=== PATIENT | female | born 1955 | race Caucasian/White ===

== ENCOUNTER 2017-02-21 07:14 | Emergency (ER) | payer OTHER ==
[2017-02-21 07:28] VITALS: BP 142/80
--- NOTE | 2017-02-21 08:13 | UC ---
Jesus Gonzalez Benjamin, scribed for Nallely Krueger DO on 02/21/17 at 0745 . Abdominal Pain Female HPI - HPI Summary HPI Summary: 62yo female c/o diffuse lower abdominal pain. Most pain is in LLQ. pt has hx of diverticulitis, and states that todays abdominal pain presents similar to her previous diverticulitis. This would be the third time. Pt has been on Cipro and flagyl for 7 days in the past. Pt reports feeling ill and nauseous from Flagyl. Pt had a fever of 101.5F, EUBANKS, and sore throat last night that is now resolved and stuffy nose and cough today since yesterday. Pt also has chronic lower back pain that is now worse than her baseline. - History of Current Complaint Chief Complaint: UCAbdominalPain Stated Complaint: ABDOMINAL PAIN Time Seen by Provider: 02/21/17 07:32 Hx Obtained From: Patient Onset/Duration: Gradual Onset, Lasting Weeks - 1 week, Still Present Timing: Constant Severity Initially: Moderate Severity Currently: Moderate Pain Intensity: 7 Pain Scale Used: 0-10 Numeric Location: Discrete At: RLQ, Discrete At: LLQ, Suprapubic Radiates: No Character: Dull, Sharp Aggravating Factor(s): Nothing Alleviating Factor(s): Nothing Associated Signs and Symptoms: Positive: Fever, Cough, Back Pain, Nausea Allergies/Adverse Reactions: Allergies Allergy/AdvReac Type Severity Reaction Status Date / Time Erythromycin Allergy GI Upset Verified 02/21/17 07:29 Metronidazole [From Flagyl] Allergy GI Upset Verified 02/21/17 07:29 Penicillins [PCN] Allergy GI Upset Verified 02/21/17 07:29 Home Medications: Home Medications Aspirin [Aspirin 81 MG TAB] 81 mg PO 02/21/17 [History] Multiple Vitamin [Multi Vitamin] 1 tab PO 02/21/17 [History] PMH/Surg Hx/FS Hx/Imm Hx Cardiovascular History: Hypertension Respiratory History: Pneumonia GI/ History: Diverticulitis - hx x2 - Surgical History Surgical History: Yes Surgery Procedure, Year, and Place: t&a - Family History Known Family History: Positive: Hypertension, Other - HLD - Social History Occupation: Employed Full-time Lives: With Family Alcohol Use: Daily Substance Use Type: None Smoking Status (MU): Never Smoked Tobacco Review of Systems Constitutional: Fever Skin: Negative Eyes: Negative ENT: Sore Throat, Nasal Discharge Respiratory: Negative Cardiovascular: Negative Gastrointestinal: Abdominal Pain, Nausea Genitourinary: Negative Motor: Negative Neurovascular: Negative Musculoskeletal: Negative Neurological: Negative Psychological: Negative All Other Systems Reviewed And Are Negative: Yes Physical Exam Triage Information Reviewed: Yes Appearance: Well-Appearing, No Pain Distress, Well-Nourished Vital Signs: Initial Vital Signs Temp 98.7 F 02/21/17 07:23 Pulse 85 02/21/17 07:23 Resp 18 02/21/17 07:23 BP 142/80 02/21/17 07:23 Pulse Ox 99 02/21/17 07:23 Vital Signs Reviewed: Yes Eyes: Positive: Conjunctiva Clear. Negative: Discharge ENT: Positive: Normal ENT inspection, Hearing grossly normal. Negative: Muffled /hoarse voice Neck: Positive: Supple, Nontender Respiratory: Positive: Lungs clear, Normal breath sounds, No respiratory distress, No accessory muscle use Cardiovascular: Positive: RRR, No Murmur Abdomen Description: Positive: Soft. Negative: Nontender - exquisite tenderness at RLQ, LLQ, and umbilical region, Distended, Guarding Bowel Sounds: Positive: Hyperactive Musculoskeletal Exam: Normal Neurological: Positive: Alert, Muscle Tone Normal Psychological Exam: Normal Psychological: Positive: Age Appropriate Behavior Skin Exam: Normal Skin: Negative: rashes Abd Pain Female Course/Dx - Course Course Of Treatment: Reviewed pts list of medications and allergies. High blood pressure noted. Suggested pt transfer to ED for higher level of care given her clinical presentation. Pt agrees to go via private car. - Differential Dx/Diagnosis Differential Diagnosis: Appendicitis, Constipation, Diverticulitis, Irritable Bowel Syndrome, Urinary Tract Infection Provider Diagnoses: abd pain of unknown magdalena - appy vs diverticulitis, elevated bp withou dx of htn Discharge - Discharge Plan Condition: Stable Disposition: HOME Patient Education Materials: Acute Abdominal Pain (ED) Referrals: Luz Ogden MD [Primary Care Provider] - (Follow up with your pcp in 3-5 days. You should follow up in the ED immediately.) Additional Instructions: YOU MAY BE HAVING A FLARE OF DIVERTICULITS, WHICH WE COULD TREAT HERE. HOWEVER , YOU ARE ALSO VERY TENDER IN THE RIGHT LOWER QUAD WHICH RAISES SUSPICION OF APPENDICITIS WHICH IS WHY WE ARE RECOMMENDING THAT YOU GO TO THE ED IMMEDIATELY FOR COMPLETE EVALUATION AND TREATMENT. WE MUST RULE OUT THIS POSSIBILITY. PLEASE DO NOT EAT OR DRINK ANYTHING PRIOR TO EVALUATION. The documentation as recorded by the Jesus drake Benjamin accurately reflects the service I personally performed and the decisions made by me, Nallely Krueger DO.
== END 2017-02-21 08:11 | disposition home or self-care (01) ==
LOC: UCEAST 07:14
DX: R10.9 Unspecified abdominal pain (principal); Z88.0 Allergy status to penicillin; I10 Essential (primary) hypertension
CPT/HCPCS: 99211; G0463

== ENCOUNTER → 2017-02-21 08:33 | Emergency (ER) | payer OTHER ==
[~2017-02-21 08:33] MED LIST: Ciprofloxacin 400MG IVPREMIX(* 400 MG/200 ML BAG IVPB ONE; Ciprofloxacin TAB* 500 MG PO ONE; Iohexol 300* (CONTRAST) 10 ML SDV IV ONE; Ketorolac INJ* 30 MG/ML 1 ML VIAL IV ONE; Ketorolac INJ* 30 MG/ML 1 ML VIAL IV PUSH ONE; Ketorolac INJ* 30 MG/ML 1 ML VIAL ONE; NS 0.9% 1000 ML* 2,000 ML IV ONE; Ondansetron INJ* 2 MG/ML VIAL IV ONE; metroNIDAZOLE IV 500 MG/100ML* 500 MG/100 ML BAG IVPB ONE
[2017-02-21 08:45] VITALS: BP 131/69
--- NOTE | 2017-02-21 09:22 | ED ---
Abdominal Pain/Female - HPI Summary HPI Summary: 62 female presents to ED with complaints of RLQ and LLQ abdominal pain, nausea and diarrhea that began yesterday 11:30am. 02/20/17. She states she has history of diverticulitis and this feels very similar. States she also had a fever yesterday of 101.5F however she does not think she has had one today. States nausea, diarrhea resolved last night. Has not eaten anything since yesterday morning. Has only been drinking water. States pain has minimized some since last night. Has not taken anything for the pain. PMHx includes HTN and chronic low back pain. Has not taken her lisinopril yet today in fear of throwing it up. Denies known blood in stool. No urinary or genitalia symptoms. Has taken cipro/flagyl in the past with flagyl making her very nauseous. Has not had an episode in a few years. Sent here from with concern for appendicitis, as patient is also tender in RLQ. However, has had previously diagnosed right sided diverticulitis as well. No abdominal surgeries or other significant PMHx. Does admit to high fiber diet. Is eating increased, nuts, grains and corn. Admits to being under some stress over the past couple of weeks. - History of Current Complaint Chief Complaint: EDAbdPain Stated Complaint: ABD PAIN Time Seen by Provider: 02/21/17 08:50 Hx Obtained From: Patient ?: No Onset/Duration: Sudden Onset, Lasting Days - 2, Still Present Timing: Constant Severity Initially: Moderate Severity Currently: Moderate Pain Intensity: 6 Pain Scale Used: 0-10 Numeric Location: Discrete At: RLQ, Discrete At: LLQ, Umbilical Radiates: No Character: Sharp, Cramping, Colicy Aggravating Factor(s): Food Alleviating Factor(s): Bowel Movement, NPO Associated Signs and Symptoms: Positive: Fever, Nausea, Diarrhea. Negative: Constipation, Blood in Stool, Urinary Symptoms, Vaginal Bleeding, Vaginal Discharge, Vomiting Allergies/Adverse Reactions: Allergies Allergy/AdvReac Type Severity Reaction Status Date / Time Erythromycin Allergy GI Upset Verified 02/21/17 08:43 Metronidazole [From Flagyl] Allergy GI Upset Verified 02/21/17 08:43 Penicillins [PCN] Allergy GI Upset Verified 02/21/17 08:43 Home Medications: Home Medications Aspirin EC Low Dose* [Ecotrin EC Low Dose 81 MG*] 81 mg PO DAILY 02/21/17 [ History Confirmed 02/21/17] Cholecalciferol TAB* [Vitamin D TAB*] 1,000 unit PO DAILY 02/21/17 [History Confirmed 02/21/17] Lisinopril TAB* [Prinivil TAB*] 10 mg PO DAILY 02/21/17 [History Confirmed 02/21] PMH/Surg Hx/FS Hx/Imm Hx Endocrine/Hematology History: Denies: Hx Diabetes Cardiovascular History: Reports: Hx Hypertension Respiratory History: Denies: Hx Asthma Musculoskeletal History: Reports: Hx Back Problems - chronic low back pain , Hx Osteoporosis - Surgical History Surgery Procedure, Year, and Place: t&a - Immunization History Immunizations Up to Date: Yes Infectious Disease History: No Infectious Disease History: Denies: Traveled Outside the [place] in Last 30 Days - Family History Known Family History: Positive: Hypertension, Other - HLD - Social History Alcohol Use: Daily Substance Use Type: Reports: None Smoking Status (MU): Never Smoked Tobacco Review of Systems Positive: Fever Cardiovascular: Negative Respiratory: Negative Positive: Abdominal Pain, Diarrhea, Nausea Genitourinary: Negative Musculoskeletal: Negative Skin: Negative Neurological: Negative All Other Systems Reviewed And Are Negative: Yes Physical Exam Triage Information Reviewed: Yes Vital Signs On Initial Exam: Initial Vitals Temp Pulse Resp BP Pulse Ox 98.3 F 81 16 131/69 100 02/21/17 08:43 02/21/17 08:43 02/21/17 08:43 02/21/17 08:43 02/21/17 08:43 Vital Signs Reviewed: Yes Appearance: Positive: Well-Appearing, No Pain Distress, Well-Nourished Skin: Positive: Warm, Skin Color Reflects Adequate Perfusion, Dry. Negative: Cold, Numb, Cyanosis @, Jaundiced, Pale, Erythema @ Head/Face: Positive: Normal Head/Face Inspection Eyes: Positive: EOMI, JOSE, Conjunctiva Clear ENT: Positive: Hearing grossly normal, Pharynx normal Dental: Negative: Cervical Lymphadenopathy Neck: Positive: Supple, Nontender Respiratory/Lung Sounds: Positive: Clear to Auscultation, Breath Sounds Present. Negative: Decreased Breath Sounds, Rales, Rhonchi, Wheezes Cardiovascular: Positive: Normal, RRR, Pulses are Symmetrical in both Upper and Lower Extremities. Negative: Murmur, Rub Abdomen Description: Positive: No Organomegaly, Soft, Guarding, Peritoneal Signs - tenderness with percussion of abdomen, Other: - diffuse tendnerness throughout lower abdomen, RLQ/LLQ and umbilical. negative psoas, negative rebound and rovsings.. Negative: Bruit, CVA Tenderness (R), CVA Tenderness (L) , Distended, McBurney's Point Tenderness, Pulsatile Mass Bowel Sounds: Positive: Present Pelvic Exam: Positive: external exam normal - per patient Musculoskeletal: Positive: Normal, Strength/ROM Intact Neurological: Positive: Normal, Sensory/Motor Intact, Alert, Oriented to Person Place, Time, NV Bundle Intact Distally, Normal Gait Psychiatric: Positive: Affect/Mood Appropriate Diagnostics - Vital Signs Vital Signs Temp Pulse Resp BP Pulse Ox 02/21/17 08:43 98.3 F 81 16 131/69 100 - Laboratory Result Diagrams: 02/21/17 09:10 02/21/17 09:10 Lab Statement: Any lab studies that have been ordered have been reviewed, and results considered in the medical decision making process. - CT abd/pelvis CT Interpretation: Positive (See Comments) - DIFFUSE COLONIC DIVERTICULOSIS WITH SIGMOID DIVERTICULITIS. THERE IS SMALL AMOUNT OF GAS ADJACENT TO THE SIGMOID COLON THAT IS NOT DEFINITELY INTRALUMINAL CONCERNING FOR MICROPERFORATION. PRELIMINARY FINDINGS WERE DISCUSSED WITH [facility] AND THE EMERGENCY DEPARTMENT AT APPROXIMATELY 12:30 PM ON FEBRUARY 21, 2017. CT Interpretation Completed By: Radiologist Re-Evaluation - Re-Evaluation First Eval Re-Evaluation Time: 10:45 Change: Unchanged Second Eval Re-Evaluation Time: 12:40 Change: Unchanged - updated on imaging and lab results. spoke with surgery and hospitalist will be consulted for admission for IV antibiotics and observation. however after consultation and discussion patient will be treated outpatient- patient preference. Abdominal Pain Fem Course/Dx - Course Course Of Treatment: offered pain management and antiemetic however patient deferred at this time. given fluids. labs obtained and normal other than elevated CRP. without WBC elevationa and afebrile. CT abd/pelvis to rule out appey versus diverticulitis due to HPI, PE findings and labs. CT showed diverticulitis with possible microperforation. Spoke with Lawrence at 12:42pm who stated non surgical however observe and IV antbiotics, will consult on floor if admitted. Spoke with Dr Buck hospitalist at 12:50pm who consulted and stated outpatient treatment seems appropriate and will be sufficient. possible microperforation not of concern at this time per Dr Bravo and Dr Buck Given zofran with cipro/flagyl IV first dose in ED. Continue at home. Patient agrees and understands. All questions answered. Aware of worsening signs and symptoms to watch out for. Fluids, rest, high fiber diet. Told foods to avoid. Close follow up PCP. Return if new or worsening symptoms. - Diagnoses Differential Diagnosis: Positive: Appendicitis, Constipation, Diverticulitis, Urinary Tract Infection Provider Diagnoses: Diverticulitis large intestine - Provider Notifications Discussed Care Of Patient With: Dr Bravo, Dr Buck Time Discussed With Above Provider: 12:45 Instructed by Provider To: Other - outpatient treatment, non surgical Discharge - Discharge Plan Condition: Stable Disposition: HOME Prescriptions: Ciprofloxacin TAB* [Cipro 500 MG TAB*] 500 mg PO BID #19 tab Metronidazole [Flagyl 500 MG TAB] 500 mg PO TID #29 tab Ondansetron ODT TAB* [Zofran 4 MG Odt TAB*] 4 mg PO Q6H PRN #20 tab.odt PRN Reason: Nausea Patient Education Materials: Diverticulitis (ED), Diverticulitis Diet (ED) Referrals: Luz Ogden MD [Primary Care Provider] - Additional Instructions: Take prescribed medication as directed. Recommend taking with food. Nausea medication as needed to avoid nausea from flagyl. Take before taking flagyl. Drinking plenty of fluids and high fiber diet. Probiotic pills or uzbek yogurt daily. Ibuprofen/tylenol for pain. Close follow up with PCP in 2-3 days. If symptoms worsen or do not improve as discussed please seek medical attention immediately.
[2017-02-21 09:28] LABS: Hematocrit 39 % (35-47); Hemoglobin 12.9 g/dl (12.0-16.0); Mean Corpuscular HGB Conc 33 g/dl (31-36); Mean Corpuscular Hemoglobin 29 pg (27-31); Mean Corpuscular Volume 87 fL (80-97); Mean Platelet Volume 8 um3 (7.4-10.4); Red Blood Count 4.45 10^6/ul (4.0-5.4); Red Cell Distribution Width 14 % (10.5-15); White Blood Count 10.7 10^3/ul (3.5-10.8)
[2017-02-21 09:45] LABS: BUN/Creatinine Ratio 17.8 (8-20); C Reactive Protein 110.68 mg/L (< 5.00); EGFR African American 104.2 (>60); Globulin 3.1 g/dL (2-4); Magnesium 1.9 mg/dL (1.9-2.7); Potassium 3.6 mmol/L (3.5-5.0); Total Bilirubin 0.8 mg/dL (0.2-1.0); Total Protein 7.1 g/dL (6.4-8.9)
[2017-02-21 11:02] LABS: Urine Bacteria Absent (Absent); Urine Bilirubin Negative (Negative); Urine Glucose Negative (Negative); Urine Nitrite Negative (Negative)
--- NOTE | 2017-02-21 12:34 | RAD ---
CLINICAL HISTORY: Right lower quadrant pain, left lower quadrant pain COMPARISON: None TECHNIQUE: Multiple contiguous axial CT scans were obtained of the abdomen and pelvis after the administration of intravenous contrast. Coronal and sagittal multiplanar reformations are submitted for review. Oral contrast was administered. Delayed images were obtained through the abdomen and pelvis. FINDINGS: LUNG BASES: The lung bases are clear. LIVER: There is a simple cyst of the right lobe of liver measuring 1.3 cm. BILE DUCTS: There is no intrahepatic or extrahepatic biliary dilatation. GALLBLADDER: The gallbladder is normal, without pericholecystic inflammatory change. PANCREAS: The pancreas is normal, without mass or ductal dilatation. SPLEEN: Normal in size and appearance. UPPER GI TRACT: Evaluation of the gastrointestinal tract is limited by incomplete gastric distention. The upper GI tract is unremarkable. SMALL BOWEL AND MESENTERY: The small bowel is normal in contour, course, and caliber. There is no obstruction or dilatation. COLON: There are diverticula scattered throughout the colon with more extensive diverticulosis of the descending and sigmoid colon. There is mucosal thickening of the sigmoid colon with mild stranding of the pericolic fat. There is a small amount of gas that is not definitely intraluminal located along the antimesenteric margin of the sigmoid colon. ADRENALS: Normal bilaterally. KIDNEYS: The kidneys are normal in shape, size, contour, and axis. There is no hydronephrosis or nephrolithiasis. BLADDER: The bladder is smooth in contour. PELVIC ORGANS: The uterus and adnexa are grossly normal for technique. This is best seen on axial image 73 and coronal image 44 AORTA: The aorta is normal. IVC: Unremarkable LYMPH NODES: There is no lymphadenopathy by size criteria. ABDOMINAL WALL: There is no evidence for abdominal wall hernia. BONES AND SOFT TISSUES: Degenerative changes are noted along the spine OTHER: None IMPRESSION: DIFFUSE COLONIC DIVERTICULOSIS WITH SIGMOID DIVERTICULITIS. THERE IS SMALL AMOUNT OF GAS ADJACENT TO THE SIGMOID COLON THAT IS NOT DEFINITELY INTRALUMINAL CONCERNING FOR MICROPERFORATION. PRELIMINARY FINDINGS WERE DISCUSSED WITH [facility] AND THE EMERGENCY DEPARTMENT AT APPROXIMATELY 12:30 PM ON FEBRUARY 21, 2017.
--- NOTE | 2017-02-21 23:02 | CONS ---
CONSULTATION REPORT: DATE OF CONSULT: 02/21/17 CONSULTING PROVIDER: Derian Buck MD CHIEF COMPLAINT: Right lower quadrant and left lower quadrant abdominal pain, nausea and diarrhea. HISTORY OF PRESENT ILLNESS: The patient is a 62-year-old female, presenting with past medical histo ry of hypertension, diverticulitis and chronic low back pain. For the last 2 days, she has had incre asing right lower quadrant and left lower quadrant abdominal pain, nausea, vomiting. At home, she r egistered a fever of 101.5, although this resolved this morning. The patient presented to the emerg ency room and was found to have evidence of diverticulitis on the CT abdomen and pelvis with IV cont rast. Impression was diffuse colonic diverticulosis with sigmoid diverticulitis. There was noted s mall amount of gas adjacent to the sigmoid colon that was unable to be determined to be completely i ntraluminal and therefore could not rule out a microperforation. The patient had no leukocytosis wi th a white count of 10.7. BMP was benign. CRP was 110 and elevated. Urinalysis was significant fo r 1+ ketones, 3+ leukocyte esterase, 1+ wbc's and presence of squamous epithelial cells. Lactic aci d was normal on 2 readings. The patient received IV Cipro and Flagyl in the emergency room. Surger y was consulted, which was not impressed with the imaging findings in regard to potential microperfo ration. Medicine was consulted and given improvement in symptoms. So, I wanted trial of outpatient management with p.o. antibiotics Cipro and Flagyl in addition to p.r.n. Zofran. The patient was ad vised to return to the emergency room with uncontrolled abdominal pain, return of fevers, lightheade dness, dizziness, uncontrolled nausea, vomiting or profuse diarrhea or inability to maintain p.o. in take. PAST MEDICAL HISTORY: Hypertension and chronic low back pain. HOME MEDICATIONS: 1. Aspirin 81 mg. 2. Cholecalciferol 1000 units p.o. daily. 3. Lisinopril 10 mg daily. ALLERGIES: The patient has adverse reactions of GI upset with PENICILLINS and FLAGYL. The FLAGYL s pecifically causes nausea. REVIEW OF SYSTEMS: The patient denies 14-point review of systems other than stated in the HPI. PHYSICAL EXAM: Patient in no acute distress, sitting on the bed gurney. HEENT: Normocephalic, atra umatic. No scleral icterus. Extraocular motions intact. Pupils equally round and reactive to light . No cervical lymphadenopathy. Respiratory: Clear to auscultation bilaterally with no wheezing, ra les, or rhonchi. Cardiovascular: Regular rate and rhythm. No murmurs, rubs, or gallops. Abdomen: Modest tenderness to palpation in the left lower and right lower quadrants. No rebound. No guardi ng. No peritoneal signs. No Gonzalez's sign. Extremities: Warm and well perfused. No peripheral ed romel. Vitals included temperature 98.3, pulse rate 81, respiratory rate 16, blood pressure 131/69. DIAGNOSTIC STUDIES/LABORATORY DATA: White count 10.7, hemoglobin 12.9, hematocrit 39, platelets 261 , neutrophil percentage 78.1%. Sodium 133, potassium 3.6, chloride 100, carbon dioxide 25, BUN 13, creatinine 0.73, lactic acid 0.8. LFTs within normal limits. CRP 110. Lipase 11. UA is in the HP I. CT abdomen and pelvis as per HPI. ASSESSMENT AND PLAN: The patient is a 62-year-old female with a past medical history of hypertensio n, diverticulitis, presenting with evidence of same. The patient is benign appearing with no leukoc ytosis, resolved fevers and nausea that has now controlled with Zofran. She will be trialed on p.o. antibiotics Cipro and Flagyl and we will give him prescription for Zofran to take before the Flagyl doses given her history of nausea resulting from them. The patient was advised to follow up closel y with emergency room or primary care provider if the patient develops fevers, abdominal pain, diarr hea, uncontrolled nausea or vomiting with just p.o. intake. The patient was evaluated by General Sarabia rgjaskaran and has very low suspicion for perforation of this diverticulitis given exam findings and over all clinical assessment. [id number]/[facility] #: [id number]
== END | disposition home or self-care (01) ==
LOC: ED 08:33
DX: K57.32 Diverticulitis of large intestine without perforation or abscess without bleeding (principal); R10.31 Right lower quadrant pain; R50.9 Fever, unspecified; R19.7 Diarrhea, unspecified; R11.10 Vomiting, unspecified; Z86.79 Personal history of other diseases of the circulatory system
CPT/HCPCS: 36415; 74177; 80053; 81003; 81015; 83605; 83690; 83735; 85025; 86140; 87086; 96374; 96375; 99282; A9270-GY; J0744; J1885; J2405; Q9967

== ENCOUNTER 2017-02-26 12:51 | Inpatient (IN) | payer OTHER ==
[2017-02-26 18:16] LABS: Hematocrit 39 % (35-47); Hemoglobin 12.7 g/dl (12.0-16.0); Mean Corpuscular HGB Conc 33 g/dl (31-36); Mean Corpuscular Hemoglobin 28 pg (27-31); Mean Corpuscular Volume 86 fL (80-97); Mean Platelet Volume 7 um3 (7.4-10.4); Red Blood Count 4.48 10^6/ul (4.0-5.4); Red Cell Distribution Width 14 % (10.5-15); White Blood Count 12.9 10^3/ul (3.5-10.8)
[2017-02-26 18:31] LABS: Albumin 3.8 g/dL (3.2-5.2); BUN/Creatinine Ratio 16.9 (8-20); C Reactive Protein 79.62 mg/L (< 5.00); Calcium 9.1 mg/dL (8.6-10.3); EGFR African American 107.6 (>60); EGFR Non-African American 83.7 (>60); Globulin 3.5 g/dL (2-4); Potassium 3.4 mmol/L (3.5-5.0); Total Bilirubin 0.4 mg/dL (0.2-1.0); Total Protein 7.3 g/dL (6.4-8.9)
[2017-02-26] MEDS ORDERED: Ciprofloxacin 400MG IVPREMIX(* 400 MG/200 ML BAG IVPB ONE (18:34)
[2017-02-26] MEDS ORDERED: Iohexol 300* (CONTRAST) 10 ML SDV IV ONE (18:48)
--- NOTE | 2017-02-26 19:18 | RAD ---
CLINICAL HISTORY: Diverticulitis COMPARISON: February 21, 2017 TECHNIQUE: Multiple contiguous axial CT scans were obtained of the abdomen and pelvis after the administration of intravenous contrast. Coronal and sagittal multiplanar reformations are submitted for review. Oral contrast was administered. Delayed images were obtained through the abdomen and pelvis. FINDINGS: LUNG BASES: The lung bases are clear. LIVER: There is a stable simple cyst of the right lobe of liver. BILE DUCTS: There is no intrahepatic or extrahepatic biliary dilatation. GALLBLADDER: The gallbladder is normal, without pericholecystic inflammatory change. PANCREAS: The pancreas is normal, without mass or ductal dilatation. SPLEEN: Normal in size and appearance. UPPER GI TRACT: Evaluation of the gastrointestinal tract is limited by incomplete gastric distention. The upper GI tract is unremarkable. SMALL BOWEL AND MESENTERY: The small bowel is normal in contour, course, and caliber. There is no obstruction or dilatation. COLON: Again noted is diffuse in the sigmoid colon with pericolic mesentery change. There is a multiloculated gas and fluid collection that surrounds the uterus and left adnexa and extends into the rectouterine pouch. ADRENALS: Normal bilaterally. KIDNEYS: The kidneys are normal in shape, size, contour, and axis. There is no hydronephrosis or nephrolithiasis. BLADDER: The bladder is smooth in contour. PELVIC ORGANS: As noted above, there is loculated gas and fluid collection surrounding the uterus and left adnexa extending to the rectouterine pouch AORTA: The aorta is normal. IVC: Unremarkable LYMPH NODES: There is no lymphadenopathy by size criteria. ABDOMINAL WALL: There is no evidence for abdominal wall hernia. BONES AND SOFT TISSUES: Degenerative changes are noted OTHER: None IMPRESSION: AGAIN NOTED IS DIVERTICULITIS OF THE SIGMOID COLON. THERE HAS BEEN INTERVAL DEVELOPMENT OF A MULTILOCULATED GAS AND FLUID COLLECTION CONSISTENT WITH ABSCESS. THIS SURROUNDS THE UTERUS AND LEFT ADNEXA, AND EXTENDS INTO THE RECTOUTERINE POUCH. THERE IS GAS WITHIN THIS COLLECTION CONSISTENT WITH MEDICATION WITH THE LUMEN OF THE BOWEL. PRELIMINARY FINDINGS WERE DISCUSSED WITH DR. NAYAK IN THE EMERGENCY DEPARTMENT AT APPROXIMATELY 7:12 PM ON FEBRUARY 26, 2017.
[2017-02-26 19:38] LABS: Urine Bacteria Absent (Absent); Urine Bilirubin Negative (Negative); Urine Glucose Negative (Negative); Urine Nitrite Negative (Negative)
[2017-02-26] MEDS ORDERED: Meropenem 1 GM PREMIX(*) 1 GM/50 ML BAG IV SCH (20:00)
[2017-02-27] MEDS: NS 0.9% 1000 ML* 1,000 ML IV SCH (00:08)
[2017-02-27] MEDS: Meropenem 1 GM PREMIX(*) 1 GM/50 ML BAG IV SCH ×3 (00:08→15:10)
[2017-02-27] MEDS ORDERED: Morphine INJ* 4 MG/ML 1 ML CARPUJECT IV PRN (00:26)
[2017-02-27] MEDS ORDERED: Ondansetron INJ* 2 MG/ML VIAL IV PRN (00:27)
--- NOTE | 2017-02-27 03:54 | ED ---
Len Gonzalez Rebecca, scribed for Devendra Saeed on 02/27/17 at 0252 . Progress - Progress Note Progress Note: Pt was signed out from Dr. Duff, pending disposition, awaiting CT Abd/Pel. - Results/Orders Results/Orders: CT Abd/Pel, as read by radiologist, reveals: AGAIN NOTED IS DIVERTICULITIS OF THE SIGMOID COLON. THERE HAS BEEN INTERVAL DEVELOPMENT OF A MULTILOCULATED GAS AND FLUID COLLECTION CONSISTENT WITH ABSCESS. THIS SURROUNDS THE UTERUS AND LEFT ADNEXA, AND EXTENDS INTO THE RECTOUTERINE POUCH. THERE IS GAS WITHIN THIS COLLECTION CONSISTENT WITH MEDICATION WITH THE LUMEN OF THE BOWEL. PRELIMINARY FINDINGS WERE DISCUSSED WITH DR. DUFF IN THE EMERGENCY DEPARTMENT AT APPROXIMATELY 7:12 PM ON FEBRUARY 26, 2017. ED physician reviewed radiology report and agrees. Course/Dx - Course Course Of Treatment: Pt was signed out from Dr. Duff, pending disposition, awaiting CT Abd/Pel. CT Abd/Pel reveals diverticulitis with the full impression above. Discussed care of pt with Dr. Judson Amador at 1930 who accepts pt for admission. Pts condition is stable and she will be admitted with Dx of diverticular abscess. She understands and agrees. Allergies noted. Elevated BP noted. Pt medications reviewed. - Diagnoses Provider Diagnoses: Diverticular abscess - Provider Notifications Discussed Care Of Patient With: Judson Amador Time Discussed With Above Provider: 19:30 Instructed by Provider To: Other - Accepts pt for admission. The documentation as recorded by the Len drake Rebecca accurately reflects the service I personally performed and the decisions made by , Devendra Saeed.
--- NOTE | 2017-02-27 04:41 | HP ---
CC: Dr. Ogden * HOSPITAL MEDICINE HISTORY AND PHYSICAL: DATE OF ADMISSION: 02/26/17 PRIMARY CARE PHYSICIAN: Dr. Ogden. ATTENDING PHYSICIAN: Judson Amador MD * (dictated provided by Teresa Wang NP). CHIEF COMPLAINT: Lower abdominal pain. HISTORY OF PRESENT ILLNESS: Ms. Doan is a 62-year-old female with a past medical history of hypertension, diverticulitis. She was first at our hospital on 02/21/17 with concern for abdominal pain and diarrhea. At that point, she had a CT of the abdomen, which showed diffuse colonic diverticulosis with diverticulitis. It also showed a small amount of gas adjacent to the sigmoid colon concerning for microperforation. Case was reviewed with surgery and it was felt that she was appropriate for discharge to home for antibiotic therapy. The patient took Cipro, Flagyl, and Zofran p.r.n. She was doing well intitially. She followed up with her primary care physician, Dr. Ogden on 10/06, at which time it was felt that she was recovering nicely. She has been having difficulty tolerating oral intake and has thus far only been able to have water. She attributes this more to Flagyl as that has been her experience in the past with this medication. However, today at 11 a.m., she had the sudden onset of "screaming pain" to her abdomen, described as diffuse in natures. In the emergency room, Ms. Doan had no fever. She had a very mild leukocytosis with a white blood cell count of 12.9, which is unchanged from previous. She had good improvement, resolution of her pain without any pain medications. She had a CT abdomen and pelvis, however, that showed she had in the interim since the last pelvic CT on 02/21/17, developed a large abscess, read as follows: "Interval development of a multiloculated gas or fluid collection consistent with abscess that surrounds the uterus and the left adnexa and extends into the rectouterine pouch. There is gas within the collection, consistent with communication with the lumen of the bowel." PAST MEDICAL HISTORY: 1. Hypertension. 2. Diverticulitis. 3. Chronic back pain since April 2016. MEDICATIONS: 1. Lisinopril 10 mg p.o. daily. 2. Metronidazole 500 mg p.o. b.i.d. 3. Ondansetron 4 mg p.o. q.6 h. p.r.n. 4. Ciprofloxacin 500 mg p.o. b.i.d. 5. Cholecalciferol 1000 units p.o. daily. 6. Aspirin 81 mg p.o. daily. ALLERGIES: ERYTHROMYCIN, METRONIDAZOLE, and PENICILLIN. FAMILY HISTORY: The patient reports her mom was an alcoholic and she also had uterine cancer. She in her 80s related to complications of alcoholism. Father in his 70s. He had dementia and prostate cancer. SOCIAL HISTORY: The patient denies tobacco or drug use. She drinks wine with dinner. She lives alone. She states her friend, Kathleen Jacome, would be her healthcare proxy. Phone number [phone]. REVIEW OF SYSTEMS: A 14-point review of systems was completed with Ms. Doan and all those not mentioned above were negative. I will note the patient said that she did not have a fever during the course of this illness at home. PHYSICAL EXAMINATION GENERAL: Ms. Doan is sitting up in the bed. She is in no acute distress. VITAL SIGNS: Temperature 99.1, pulse rate 86, respiratory rate 18, O2 saturation 98% on room air, blood pressure 120/68. LUNGS: Clear to auscultation bilaterally with no accessory muscle use and good aeration. HEART: S1 and S2. No murmur, rub, or gallop, and regular. ABDOMEN: Soft. There is tenderness along the lower abdomen, but there is no rebound. There is no guarding. Bowel sounds are positive. EXTREMITIES: No cyanosis or edema. NEURO: She is alert, she is oriented x3. She moves all extremities equally. There is no facial asymmetry or focal weakness. Extraocular movements are intact. SKIN: Intact. DIAGNOSTIC STUDIES/LAB DATA: WBC 12.9, hemoglobin 12.7, hematocrit 39, and platelet count 373,000. Sodium 133, potassium 3.4, chloride 94, serum bicarbonate 28, BUN 12, creatinine 0.71, glucose 87. CRP 79.62. Urine shows no evidence of infection. CT abdomen and pelvis as addressed above. ASSESSMENT AND PLAN: Ms. Doan is a 62-year-old female with a past medical history of diverticulitis, first presented to our hospital on 02/21/17 with evidence of diverticulitis on CT abdomen and pelvis that was treated outpatient with antibiotics. The patient returns today with severe pain, found to have an interval development of a loculated abscess. Our plans are for inpatient admission, as expected length of stay to be greater than 2 days with followin. Diverticulitis with perforation and abscess: Surgery has been consulted and they will be seeing the patient. The patient will have meropenem for IV antibiotic coverage given failure of Cipro and Flagyl. She will have clear liquids as tolerated. She will have morphine p.r.n. She will have Zofran p.r.n. 2. Hypertension: Plan to hold lisinopril during the acute illness. 3. Code status is full code. 4. DVT prophylaxis: Heparin subcu. TIME SPENT: Approximately 60 minutes was spent on the admission of this patient. More than half the time spent with the patient at the bedside reviewing the events leading up to this hospitalization, performing the physical examination, and reviewing the plan of care. TERESA WANG NP [id number]/[facility] #: [id number] [place]
[2017-02-27] MEDS: Acetaminophen TAB* 325 MG PO PRN ×4 (05:21→23:55)
[2017-02-27] MEDS: Heparin VIAL(*) 5000 UNITS/ML VIAL (FIVE THOUSAND) SUBCUT SCH ×3 (05:22→21:50)
[2017-02-27 07:08] LABS: Hematocrit 36 % (35-47); Mean Corpuscular HGB Conc 34 g/dl (31-36); Mean Corpuscular Hemoglobin 29 pg (27-31); Mean Corpuscular Volume 86 fL (80-97); Mean Platelet Volume 7 um3 (7.4-10.4); Red Blood Count 4.14 10^6/ul (4.0-5.4); Red Cell Distribution Width 14 % (10.5-15); White Blood Count 10.3 10^3/ul (3.5-10.8)
[2017-02-27 07:22] LABS: BUN/Creatinine Ratio 16.7 (8-20); Calcium 8.2 mg/dL (8.6-10.3); EGFR African American 130.7 (>60); EGFR Non-African American 101.6 (>60); Potassium 3.6 mmol/L (3.5-5.0)
--- NOTE | 2017-02-27 14:15 | PN ---
Subjective Date of Service: 02/27/17 Interval History: Patient has no complaints at time of interview. Patient states that her abdominal pain from last night has resolved. Patient states she has been having loose stools and frequent flatus with occasional incontinence of small amounts of stool. Patient denies f/c, n/v, chest pain, SOB, dysuria, hematuria, melena, hematochezia or hematemesis. Family History: Unchanged from Admission Social History: Unchanged from Admission Past Medical History: Unchanged from Admission Objective Active Medications: Acetaminophen (Tylenol Tab*) 650 mg PO Q6H PRN PRN Reason: PAIN/FEVER Last Admin: 02/27/17 11:25 Dose: 650 mg Heparin Sodium (Porcine) (Heparin Vial(*)) 5,000 units SUBCUT Q8HR [facility] Last Admin: 02/27/17 05:22 Dose: 5,000 units Meropenem (Merrem 1 Gm Premix(*)) 1 gm in 50 mls @ 100 mls/hr IV 0000,0800, 1600 [facility] Last Admin: 02/27/17 07:33 Dose: 100 mls/hr Sodium Chloride (Ns 0.9% 1000 Ml*) 1,000 mls @ 100 mls/hr IV PER RATE [facility] Last Admin: 02/27/17 00:08 Dose: 100 mls/hr Morphine Sulfate (Morphine Inj (Syringe)*) 4 mg IV Q2H PRN PRN Reason: PAIN Ondansetron HCl (Zofran Inj*) 4 mg IV Q4H PRN PRN Reason: NAUSEA Vital Signs 02/26/17 02/26/17 02/26/17 20:00 20:40 21:00 Temperature Pulse Rate 77 94 78 Respiratory Rate Blood Pressure 133/64 144/132 137/74 (mmHg) O2 Sat by Pulse 95 95 95 Oximetry 02/26/17 02/26/17 02/26/17 21:10 21:30 22:00 Temperature Pulse Rate 82 81 83 Respiratory Rate Blood Pressure 102/70 135/76 134/71 (mmHg) O2 Sat by Pulse 96 96 96 Oximetry 02/26/17 02/26/17 02/26/17 22:30 23:14 23:26 Temperature 99.1 F 99.0 F Pulse Rate 77 79 Respiratory 14 Rate Blood Pressure 134/72 137/77 (mmHg) O2 Sat by Pulse 96 97 Oximetry 02/27/17 02/27/17 02/27/17 03:34 08:00 08:03 Temperature 98.8 F 98.9 F Pulse Rate 83 79 Respiratory 16 16 16 Rate Blood Pressure 118/67 132/71 (mmHg) O2 Sat by Pulse 98 96 Oximetry Oxygen Devices in Use Now: None Appearance: Patient is a 62yo female who appears stated age and is sitting in the exam bed in NAD. Eyes: No Scleral Icterus, PERRLA Ears/Nose/Mouth/Throat: NL Teeth, Lips, Gums, Clear Oropharnyx, Mucous Membranes Moist Neck: NL Appearance and Movements; NL JVP, Trachea Midline Respiratory: Symmetrical Chest Expansion and Respiratory Effort, Clear to Auscultation Cardiovascular: NL Sounds; No Murmurs; No JVD, RRR, No Edema Abdominal: No Hepatosplenomegaly, - - Slight tenderness to deep palpation in suprapubic area. No other tenderness or mass. BS present and normoactive in 4 quadrants. Lymphatic: No Cervical Adenopathy Extremities: No Edema, No Clubbing, Cyanosis Skin: No Rash or Ulcers, No Nodules or Sclerosis Neurological: Alert and Oriented x 3 Result Diagrams: 02/27/17 06:38 02/27/17 06:38 Additional Lab and Data: 02/26/17 02/26/17 02/26/17 18:05 18:05 18:05 WBC 12.9 H RBC 4.48 Hgb 12.7 Hct 39 MCV 86 MCH 28 MCHC 33 RDW 14 Plt Count 373 MPV 7 L Neut % (Auto) 71.8 Lymph % (Auto) 16.9 L [place] % (Auto) 10.4 H Eos % (Auto) 0.5 Baso % (Auto) 0.4 Absolute Neuts (auto) 9.3 H Absolute Lymphs (auto) 2.2 Absolute Monos (auto) 1.3 H Absolute Eos (auto) 0.1 Absolute Basos (auto) 0.1 Absolute Nucleated RBC 0 Nucleated RBC % 0 Sodium 133 Potassium 3.4 L Chloride 94 L Carbon Dioxide 28 Anion Gap 11 BUN 12 Creatinine 0.71 Est GFR ( Amer) 107.6 Est GFR (Non-Af Amer) 83.7 BUN/Creatinine Ratio 16.9 Glucose 87 Lactic Acid 0.8 Calcium 9.1 Total Bilirubin 0.40 AST 18 ALT 12 Alkaline Phosphatase 66 C-Reactive Protein 79.62 H Total Protein 7.3 Albumin 3.8 Globulin 3.5 Albumin/Globulin Ratio 1.1 Lipase 20 Urine Color Urine Appearance Urine pH Ur Specific [place] Urine Protein Urine Ketones Urine Blood Urine Nitrate Urine Bilirubin Urine Urobilinogen Ur Leukocyte Esterase Urine WBC (Auto) Urine RBC (Auto) Ur Squamous Epith Cells Urine Bacteria Urine Glucose 02/26/17 02/27/17 02/27/17 19:21 06:38 06:38 WBC 10.3 RBC 4.14 Hgb 12.0 Hct 36 MCV 86 MCH 29 MCHC 34 RDW 14 Plt Count 335 MPV 7 L Neut % (Auto) 71.5 Lymph % (Auto) 15.8 L [place] % (Auto) 11.5 H Eos % (Auto) 0.8 Baso % (Auto) 0.4 Absolute Neuts (auto) 7.3 Absolute Lymphs (auto) 1.6 Absolute Monos (auto) 1.2 H Absolute Eos (auto) 0.1 Absolute Basos (auto) 0 Absolute Nucleated RBC 0 Nucleated RBC % 0 Sodium 135 Potassium 3.6 Chloride 100 L Carbon Dioxide 25 Anion Gap 10 BUN 10 Creatinine 0.60 Est GFR ( Amer) 130.7 Est GFR (Non-Af Amer) 101.6 BUN/Creatinine Ratio 16.7 Glucose 86 Lactic Acid Calcium 8.2 L Total Bilirubin AST ALT Alkaline Phosphatase C-Reactive Protein Total Protein Albumin Globulin Albumin/Globulin Ratio Lipase Urine Color Straw Urine Appearance Clear Urine pH 6.0 Ur Specific [place] 1.050 H Urine Protein Negative Urine Ketones 1+ H Urine Blood Negative Urine Nitrate Negative Urine Bilirubin Negative Urine Urobilinogen Negative Ur Leukocyte Esterase Trace H Urine WBC (Auto) Trace(0-5/hpf) Urine RBC (Auto) Trace(0-2/hpf) Ur Squamous Epith Cells Present H Urine Bacteria Absent Urine Glucose Negative Assess/Plan/Problems-Billing Assessment: - Patient Problems (1) Intraperitoneal abscess Current Visit: Yes Status: Acute Code(s): K65.1 - PERITONEAL ABSCESS SNOMED Code(s): 46842492 Comment: Appreciate Input from Surgery. Continue IV antibiotics for 2-3 days at minimum. Monitor for signs of systemic toxicity. Supportive care as needed. No current abdominal pain. Appreciate ID consult. Suggested switch to Zosyn from Meropenum and will see in morning. (2) Hypertension Current Visit: Yes Status: Acute Code(s): I10 - ESSENTIAL (PRIMARY) HYPERTENSION SNOMED Code(s): 09758147 Comment: Hold Lisinopril. Currently normotensive. (3) Full code status Current Visit: Yes Status: Acute Code(s): Z78.9 - OTHER SPECIFIED HEALTH STATUS SNOMED Code(s): 169321276 (4) DVT prophylaxis Current Visit: Yes Status: Acute Code(s): QUW8998 - SNOMED Code(s): 770630718 Comment: SubQ Heparin Status and Disposition: Patient is admitted inpatient for IV antibiotics. Estimated LOS at least 2-3 days.
[2017-02-27] MEDS: Lactobacillus Acidophilu (GG)* 1 CAP CAP PO SCH (15:10)
[2017-02-27] MEDS ORDERED: Zosyn per Pharmacy* NOTE FOLLOW UP PRN (17:27)
--- NOTE | 2017-02-27 21:38 | CONS ---
CC: Dr. Luz Ogden * SURGICAL CONSULTATION REPORT: DATE OF CONSULT: 02/27/17 HISTORY OF PRESENT ILLNESS: The patient is a 62-year-old female, who comes in with signs and symptoms consistent with diverticulitis. She was here about 5 days ago, seen in the emergency room and discharged on oral antibiotics, but yesterday had very intense bout of pain in the suprapubic and left lower quadrant region and therefore presented to the emergency room. She is actually feeling quite a bit better this morning. By history, she had a lesser attack a couple of years ago and then her first attack of diverticulitis, she thinks was 6 or 8 years ago. She did not have any perforation or abscess at that time. PAST MEDICAL HISTORY: Her past medical history is benign in terms of colon. She has not had other colonic diseases or bowel issues and no previous intestinal surgery. The pain has not been radiating into the groin or down the leg or elsewhere. She did note that she has had some chronic back pain since April and that pain all of a sudden got better when this diverticulitis started. PHYSICAL EXAM: She is a well-developed, well-nourished female appears fit and energetic. She is afebrile. Vital signs are noted. Abdomen is soft, mild tenderness in the left suprapubic region. No guarding. No rebound. No cough or percussion tenderness. No palpable masses. DIAGNOSTIC STUDIES/LAB DATA: Her laboratory studies show a white blood count slightly elevated on admission, now down to normal. She does have a little bit of a left shift and her CT scan does show what looks like extraluminal air and fluid in the region of the sigmoid colon behind the bladder. This is consistent with a perforated diverticulitis with a focal abscess. IMPRESSION: Diverticulitis, originally treated with oral antibiotics now complicated by a focal perforation with probably evolving abscess. PLAN: I agree with the plan for continued intravenous antibiotics. We will monitor her along with you. So long as she responds to the intravenous antibiotics, then she could probably be discharged in a couple of days on oral antibiotics. If, however, she fails to respond or relapses, then CT-guided percutaneous drainage may be warranted or even possibly surgical intervention. We will continue to follow along with you. Thanks for allowing us to participate in her care. [id number]/[facility] #: [id number] [place]
[2017-02-28] MEDS ORDERED: ZOSYN 3.375 GM x ONE DOSE over 30 miuntes IVPB ×2
[2017-02-28] MEDS: NS 0.9% 1000 ML* 1,000 ML IV SCH ×2 (02:39→15:13)
[2017-02-28] MEDS: Heparin VIAL(*) 5000 UNITS/ML VIAL (FIVE THOUSAND) SUBCUT SCH ×3 (05:08→22:40)
[2017-02-28 05:55] LABS: Hematocrit 35 % (35-47); Hemoglobin 11.5 g/dl (12.0-16.0); Mean Corpuscular HGB Conc 33 g/dl (31-36); Mean Corpuscular Hemoglobin 29 pg (27-31); Mean Corpuscular Volume 87 fL (80-97); Mean Platelet Volume 8 um3 (7.4-10.4); Red Cell Distribution Width 14 % (10.5-15); White Blood Count 8.9 10^3/ul (3.5-10.8)
[2017-02-28 06:13] LABS: BUN/Creatinine Ratio 10.9 (8-20); C Reactive Protein 37.06 mg/L (< 5.00); Calcium 7.8 mg/dL (8.6-10.3); EGFR African American 144.5 (>60); EGFR Non-African American 112.4 (>60); Potassium 3.3 mmol/L (3.5-5.0)
[2017-02-28] MEDS: Acetaminophen TAB* 325 MG PO PRN ×3 (07:48→20:19)
--- NOTE | 2017-02-28 08:37 | SURGPN ---
Subjective - Introduction -: Patient seen and examined at bedside. Reports feeling much better today. Pain is improving, only taking Tylenol with good relief. Tolerating liquid diet. Denies fever or chills. - Medications -: Active Medications Generic Name Dose Route Start Last Admin Trade Name Freq PRN Reason Stop Dose Admin Acetaminophen 650 mg 02/27/17 00:26 02/28/17 07:48 Tylenol Tab* PO 650 mg Q6H PRN Administration PAIN/FEVER Heparin Sodium (Porcine) 5,000 units 02/27/17 06:00 02/28/17 05:08 Heparin Vial(*) SUBCUT 5,000 units Q8HR [facility] Administration Sodium Chloride 1,000 mls @ 100 mls/hr 02/27/17 00:30 02/28/17 02:39 Ns 0.9% 1000 Ml* IV 100 mls/hr PER RATE [facility] Administration Piperacillin Sod/Tazobactam 100 mls @ 25 mls/hr 02/28/17 04:00 02/28/17 05:08 Sod 3.375 gm/ Sodium Chloride IVPB 25 mls/hr Q8H [facility] Administration Lactobacillus Rhamnosus 1 cap 02/27/17 15:00 02/27/17 15:10 Culturelle* PO 1 cap DAILY [facility] Administration Morphine Sulfate 4 mg 02/27/17 00:26 Morphine Inj (Syringe)* IV Q2H PRN PAIN Ondansetron HCl 4 mg 02/27/17 00:27 Zofran Inj* IV Q4H PRN NAUSEA Pharmacy Consult 1 note 02/27/17 17:27 Zosyn Per Pharmacy* FOLLOW UP . PRN PER PROTOCOL Objective - Objective -: Awake and alert, comfortable in bed, in NAD. - Intake and Output -: Intake & Output 02/26/17 02/27/17 02/28/17 03/01/17 06:59 06:59 06:59 06:59 Intake Total 197 0 Output Total 500 2175 Balance -303 -135 Weight 155 lb Intake: IV Fluids 197 ABX - CIPROFLOXACIN 197 Oral 0 2040 Output: Urine 500 2175 Other: # Bowel Movements 1 Estimated Stool Amount Medium Medium Surgical Physical Exam - Comments -: VSS, afebrile Lungs CTA bilat. Heart RRR, no murmurs Abdomen soft and non-distended. Mild Suprapubic and LLQ tenderness noted, without guarding or rebound. Bowel sounds normoactive. Ext. without edema Labs noted, WBCs normalized Assessment and Plan - Assessment -: A 62 y/o female with intraabdominal abscess collection secondary to perforated diverticulitis, clinically stable. - Plan Additional Comments: Continue IV Abx Will keep her on liquid diet for now Discussed with IR possible CT guided drainage of abscess. Unfortunately, fluid collection is located in a difficult area with increasing risk of bowel injury. Will hold off any drain plans at this time. Clinically, patient is doing mush better. Possible d/c to home tomorrow on PO Abx if she continues to improve.
[2017-02-28] MEDS: Lactobacillus Acidophilu (GG)* 1 CAP CAP PO SCH (09:50)
--- NOTE | 2017-02-28 15:02 | PN ---
Subjective Date of Service: 02/28/17 Interval History: No new complaints overnight. No symptoms of systemic toxicity. No reaction to Zosyn dosing. No increase in abdominal pain. Patient continues to have diarrhea , but states that is is less watery and has more formed particles. Family History: Unchanged from Admission Social History: Unchanged from Admission Past Medical History: Unchanged from Admission Objective Active Medications: Acetaminophen (Tylenol Tab*) 650 mg PO Q6H PRN PRN Reason: PAIN/FEVER Last Admin: 02/28/17 14:27 Dose: 650 mg Heparin Sodium (Porcine) (Heparin Vial(*)) 5,000 units SUBCUT Q8HR [facility] Last Admin: 02/28/17 14:28 Dose: 5,000 units Sodium Chloride (Ns 0.9% 1000 Ml*) 1,000 mls @ 100 mls/hr IV PER RATE [facility] Last Admin: 02/28/17 02:39 Dose: 100 mls/hr Piperacillin Sod/Tazobactam (Sod 3.375 gm/ Sodium Chloride) 100 mls @ 25 mls/ hr IVPB Q8H [facility] Last Admin: 02/28/17 12:51 Dose: 25 mls/hr Lactobacillus Rhamnosus (Culturelle*) 1 cap PO DAILY [facility] Last Admin: 02/28/17 09:50 Dose: 1 cap Morphine Sulfate (Morphine Inj (Syringe)*) 4 mg IV Q2H PRN PRN Reason: PAIN Ondansetron HCl (Zofran Inj*) 4 mg IV Q4H PRN PRN Reason: NAUSEA Pharmacy Consult (Zosyn Per Pharmacy*) 1 note FOLLOW UP . PRN PRN Reason: PER PROTOCOL Vital Signs 02/27/17 02/27/17 02/27/17 15:52 21:00 22:50 Temperature 97.8 F 98.2 F Pulse Rate 71 79 Respiratory 16 16 14 Rate Blood Pressure 131/69 125/70 (mmHg) O2 Sat by Pulse 96 94 Oximetry 02/28/17 02/28/17 02/28/17 00:17 04:10 08:00 Temperature 98.7 F 98.1 F 98.1 F Pulse Rate 71 65 67 Respiratory 16 16 17 Rate Blood Pressure 122/62 119/67 129/66 (mmHg) O2 Sat by Pulse 96 96 96 Oximetry 02/28/17 11:03 Temperature 97.5 F Pulse Rate 74 Respiratory 18 Rate Blood Pressure 123/69 (mmHg) O2 Sat by Pulse 93 Oximetry Oxygen Devices in Use Now: None Appearance: Patient is a 62yo female who appears atated age and is sitting comfortably in the bed in NAD. Eyes: No Scleral Icterus, PERRLA Ears/Nose/Mouth/Throat: NL Teeth, Lips, Gums, Clear Oropharnyx, Mucous Membranes Moist Neck: NL Appearance and Movements; NL JVP, Trachea Midline Respiratory: Symmetrical Chest Expansion and Respiratory Effort, Clear to Auscultation Cardiovascular: NL Sounds; No Murmurs; No JVD, RRR, No Edema Abdominal: No Hepatosplenomegaly, - - Normal sounds, slight distention. Slight tenderness to palpation over lower abdomen. No involuntary or voluntary guarding. Lymphatic: No Cervical Adenopathy Skin: No Rash or Ulcers, No Nodules or Sclerosis Neurological: Alert and Oriented x 3 Result Diagrams: 02/28/17 05:05 02/28/17 05:05 Additional Lab and Data: 02/26/17 02/26/17 02/26/17 18:05 18:05 18:05 WBC 12.9 H RBC 4.48 Hgb 12.7 Hct 39 MCV 86 MCH 28 MCHC 33 RDW 14 Plt Count 373 MPV 7 L Neut % (Auto) 71.8 Lymph % (Auto) 16.9 L [place] % (Auto) 10.4 H Eos % (Auto) 0.5 Baso % (Auto) 0.4 Absolute Neuts (auto) 9.3 H Absolute Lymphs (auto) 2.2 Absolute Monos (auto) 1.3 H Absolute Eos (auto) 0.1 Absolute Basos (auto) 0.1 Absolute Nucleated RBC 0 Nucleated RBC % 0 Sodium 133 Potassium 3.4 L Chloride 94 L Carbon Dioxide 28 Anion Gap 11 BUN 12 Creatinine 0.71 Est GFR ( Amer) 107.6 Est GFR (Non-Af Amer) 83.7 BUN/Creatinine Ratio 16.9 Glucose 87 Lactic Acid 0.8 Calcium 9.1 Total Bilirubin 0.40 AST 18 ALT 12 Alkaline Phosphatase 66 C-Reactive Protein 79.62 H Total Protein 7.3 Albumin 3.8 Globulin 3.5 Albumin/Globulin Ratio 1.1 Lipase 20 Urine Color Urine Appearance Urine pH Ur Specific [place] Urine Protein Urine Ketones Urine Blood Urine Nitrate Urine Bilirubin Urine Urobilinogen Ur Leukocyte Esterase Urine WBC (Auto) Urine RBC (Auto) Ur Squamous Epith Cells Urine Bacteria Urine Glucose 02/26/17 02/27/17 02/27/17 19:21 06:38 06:38 WBC 10.3 RBC 4.14 Hgb 12.0 Hct 36 MCV 86 MCH 29 MCHC 34 RDW 14 Plt Count 335 MPV 7 L Neut % (Auto) 71.5 Lymph % (Auto) 15.8 L [place] % (Auto) 11.5 H Eos % (Auto) 0.8 Baso % (Auto) 0.4 Absolute Neuts (auto) 7.3 Absolute Lymphs (auto) 1.6 Absolute Monos (auto) 1.2 H Absolute Eos (auto) 0.1 Absolute Basos (auto) 0 Absolute Nucleated RBC 0 Nucleated RBC % 0 Sodium 135 Potassium 3.6 Chloride 100 L Carbon Dioxide 25 Anion Gap 10 BUN 10 Creatinine 0.60 Est GFR ( Amer) 130.7 Est GFR (Non-Af Amer) 101.6 BUN/Creatinine Ratio 16.7 Glucose 86 Lactic Acid Calcium 8.2 L Total Bilirubin AST ALT Alkaline Phosphatase C-Reactive Protein Total Protein Albumin Globulin Albumin/Globulin Ratio Lipase Urine Color Straw Urine Appearance Clear Urine pH 6.0 Ur Specific [place] 1.050 H Urine Protein Negative Urine Ketones 1+ H Urine Blood Negative Urine Nitrate Negative Urine Bilirubin Negative Urine Urobilinogen Negative Ur Leukocyte Esterase Trace H Urine WBC (Auto) Trace(0-5/hpf) Urine RBC (Auto) Trace(0-2/hpf) Ur Squamous Epith Cells Present H Urine Bacteria Absent Urine Glucose Negative Assess/Plan/Problems-Billing Assessment: Patient is a 62yo female significant for HTN, LBP, and Diverticulitis who is admitted with an intraperitoneal abscess for IV antibiotics and supportive care. - Patient Problems (1) Intraperitoneal abscess Current Visit: Yes Status: Acute Code(s): K65.1 - PERITONEAL ABSCESS SNOMED Code(s): 00266529 Comment: Appreciate Input from Surgery. Continue IV antibiotics for 2-3 days at minimum. Monitor for signs of systemic toxicity. Supportive care as needed. Clear liquid diet. No current abdominal pain 0/10 with tylenol. Appreciate ID consult. Suggested switch to Zosyn from Meropenum. Diarrhea improving. Continue probiotic. (2) Hypertension Current Visit: Yes Status: Acute Code(s): I10 - ESSENTIAL (PRIMARY) HYPERTENSION SNOMED Code(s): 40082030 Comment: Hold Lisinopril. Currently normotensive. (3) Full code status Current Visit: Yes Status: Acute Code(s): Z78.9 - OTHER SPECIFIED HEALTH STATUS SNOMED Code(s): 097187515 (4) DVT prophylaxis Current Visit: Yes Status: Acute Code(s): AIY1423 - SNOMED Code(s): 351692447 Comment: SubQ Heparin Status and Disposition: Patient is admitted inpatient for IV antibiotics. Estimated LOS at least 2-3 days.
--- NOTE | 2017-02-28 16:37 | CONS ---
CONSULTATION REPORT: DATE OF CONSULT: 02/28/17 REQUESTING PROVIDER: BEBETO Tapia. CONSULTING SERVICE: Infectious Disease. REASON FOR CONSULT: Diverticular abscess. IMPRESSION: 1. Acute diverticulitis complicated by perforation and diverticular abscess, extending to the uterus, left adnexa, into the rectouterine pouch. White count , abdominal symptoms improving on Zosyn. 2. PENICILLIN caused GI intolerance as a child. RECOMMENDATIONS: Agree with Zosyn. We discussed that given that she is improving, the surgeons may elect not to pursue drainage procedure. In that case I would recommend a 4-week course of IV antibiotics and a CT scan near the end of that course to ensure resolution. HISTORY OF PRESENT ILLNESS: This is a 62-year-old woman with recent acute diverticulitis, discharged from the ER on Cipro and Flagyl. Was going great and then on the had a sudden onset of severe, worst in her life, left lower quadrant pain, some chills and sweats. She came to the ER in the afternoon, her white blood cell count was 13,000. She had a CT scan with findings as above. She was started on IV antibiotics, had a dose of Cipro on the evening of the and the meropenem starting the next morning. I discussed the case with BEBETO Reyes, and recommended changing to Zosyn yesterday where she has been on since then. She has tolerated that well. Her left lower quadrant pain has significantly improved. She is eating a little bit, passing flatus. Her chills and sweats are better as well. She has had diverticulitis a couple of times in the past over the last few years. Never had an abscess. PAST MEDICAL HISTORY: 1. Diverticulitis. 2. Hypertension. 3. Low back pain, chronic. MEDICATIONS: 1. Tylenol. 2. Heparin subcutaneous injection. 3. Lactobacillus. 4. Zosyn 3.37 g every 8 hours. ALLERGIES: ERYTHROMYCIN, PENICILLIN caused GI upset. FAMILY HISTORY: No recurrent infections. SOCIAL HISTORY: She lives in [place], works at [employer]. She also has a farm. She has no travel. No sick contacts. REVIEW OF SYSTEMS: All negative, the 14-point review of systems except as noted above. PHYSICAL EXAM: Vital Signs: Temperature is 36.4, heart rate 70, respiratory rate 18, blood pressure 120/70, and O2 sat 93% on room air. General: She is awake, not in distress. Neurologic: She is oriented x3, follows all commands. HEENT: There is no conjunctival hemorrhage. Oropharynx without lesions. Neck is supple without nuchal rigidity. Lymph Nodes: There are no cervical, supraclavicular, inguinal, axillary, or epitrochlear lymphadenopathy. Heart is regular, rate, and rhythm without murmurs, rubs, or gallops. Lungs are clear to auscultation bilaterally. Abdomen: Soft, mildly distended. There is left lower quadrant tenderness to palpation. There is no rebound. There are bowel sounds present. Skin: There is no rash or splinter hemorrhages. Musculoskeletal: There is no spine tenderness to palpation. DIAGNOSTIC STUDIES/ LAB DATA: White blood cell count 8.9, hemoglobin 11, platelets 259. Creatinine is 0.5, CRP 37 down from 80. Please see impressions and recommendations outlined above. Thank you for asking me to see Ms. Doan in consultation. [id number]/[facility] #: [id number] HEALTH SYSTEMArnav
[2017-03-01] MEDS: Acetaminophen TAB* 325 MG PO PRN ×5 (03:20→21:09)
[2017-03-01] MEDS: NS 0.9% 1000 ML* 1,000 ML IV SCH ×2 (05:09→19:54)
[2017-03-01] MEDS: Heparin VIAL(*) 5000 UNITS/ML VIAL (FIVE THOUSAND) SUBCUT SCH ×3 (05:09→21:09)
[2017-03-01 05:50] LABS: Hematocrit 35 % (35-47); Hemoglobin 11.8 g/dl (12.0-16.0); Mean Corpuscular HGB Conc 33 g/dl (31-36); Mean Corpuscular Hemoglobin 29 pg (27-31); Mean Corpuscular Volume 86 fL (80-97); Mean Platelet Volume 7 um3 (7.4-10.4); Red Cell Distribution Width 14 % (10.5-15); White Blood Count 8.8 10^3/ul (3.5-10.8)
[2017-03-01 06:02] LABS: BUN/Creatinine Ratio 6.6 (8-20); Calcium 7.9 mg/dL (8.6-10.3); EGFR African American 128.2 (>60); EGFR Non-African American 99.7 (>60); Potassium 3.2 mmol/L (3.5-5.0)
[2017-03-01] MEDS ORDERED: KCL 20 MEQ/100 ML IVPREMIX* 20 MEQ/100 ML BAG IV ONE (07:55)
[2017-03-01] MEDS ORDERED: Potassium Chlor TAB* 20 MEQ TAB.ER PO ONE (07:55)
[2017-03-01 08:17] LABS: Magnesium 1.8 mg/dL (1.9-2.7)
--- NOTE | 2017-03-01 09:15 | PN ---
Progress Note - Progress Note Date of Service: 03/01/17 Note: Surgery Progress: S: Cont to do well; min discomfort. Catia clears (would like to advance; understands the need for transitional diet). Cont on Zosyn. Dr. Luna's recs noted. O: Vital Signs - 8 hr 03/01/17 03/01/17 03:27 07:18 Temperature 98.2 F 98.3 F Pulse Rate 63 66 Respiratory 16 16 Rate Blood Pressure 136/78 132/71 (mmHg) O2 Sat by Pulse 95 96 Oximetry Gen: WN, NAD; appears comfortable Heart: reg Lungs: clear; few crackles L base Abd: +BS; soft; nontender to palp Labs: Laboratory Tests 03/01/17 03/01/17 05:37 05:37 WBC 8.8 Potassium 3.2 L A: diverticulitis w/ contained perf, improving on Zosyn P: abx and dispo per hosp and ID; at this point, no need for surg intervention. Would allow advance to transitional diet. Repeat CT toward end of Abx course, provided she continues to do well clinically. We will sign off for now. She also understands the consideration for semi-elective sigmoid rsxn given her hx.
[2017-03-01] MEDS: Lactobacillus Acidophilu (GG)* 1 CAP CAP PO SCH (09:29)
[2017-03-01] MEDS ORDERED: Magnesium Sulfate 2 GM IV* 2 GM/50 ML BAG IVPB ONE (15:07)
--- NOTE | 2017-03-01 15:15 | PN ---
Subjective Date of Service: 03/01/17 Interval History: Patient seen and examined at bedside. Denies fever, chills, shortness of breath , chest discomfort, N/V. Pt states that she has some lower abdominal aching after eating lunch. Reports that she has been eating more today, then she has been recently. Nory has many concerns about going home, we discussed her concerns and ways to adapt to her needs. Family History: Unchanged from Admission Social History: Unchanged from Admission Past Medical History: Unchanged from Admission Objective Active Medications: Acetaminophen (Tylenol Tab*) 650 mg PO Q6H PRN Reason: PAIN/FEVER Heparin Sodium (Porcine) (Heparin Vial(*)) 5,000 units SUBCUT Q8HR HEMANT Sodium Chloride (Ns 0.9% 1000 Ml*) 1,000 mls @ 100 mls/hr IV PER RATE HEMANT Piperacillin Sod/Tazobactam (Sod 3.375 gm/ Sodium Chloride) 100 mls @ 25 mls/ hr IVPB Q8H HEMANT Magnesium Sulfate (Magnesium Sulfate 2 Gm Iv*) 2 gm in 50 mls @ 50 mls/hr IVPB ONCE ONE Stop: 03/01/17 16:06 Lactobacillus Rhamnosus (Culturelle*) 1 cap PO DAILY HEMANT Morphine Sulfate (Morphine Inj (Syringe)*) 4 mg IV Q2H PRN Reason: PAIN Ondansetron HCl (Zofran Inj*) 4 mg IV Q4H PRN Reason: NAUSEA Pharmacy Consult (Zosyn Per Pharmacy*) 1 note FOLLOW UP . PRN Reason: PER PROTOCOL Vital Signs 02/28/17 02/28/17 02/28/17 15:13 22:43 23:56 Temperature 97.9 F 98.3 F Pulse Rate 72 69 Respiratory 16 14 16 Rate Blood Pressure 115/70 130/61 (mmHg) O2 Sat by Pulse 97 97 Oximetry 03/01/17 03/01/17 03/01/17 03:27 07:18 11:15 Temperature 98.2 F 98.3 F 98.2 F Pulse Rate 63 66 77 Respiratory 16 16 16 Rate Blood Pressure 136/78 132/71 112/67 (mmHg) O2 Sat by Pulse 95 96 97 Oximetry Oxygen Devices in Use Now: None Appearance: NAD, laying in bed Ears/Nose/Mouth/Throat: Mucous Membranes Moist Respiratory: Symmetrical Chest Expansion and Respiratory Effort, Clear to Auscultation Cardiovascular: NL Sounds; No Murmurs; No JVD, RRR Abdominal: NL Sounds; No Tenderness; No Distention Extremities: No Edema Skin: No Rash or Ulcers Neurological: Alert and Oriented x 3, NL Muscle Strength and Tone Lines/Tubes/Other Access: Clean, Dry and Intact Peripheral IV - site benign Nutrition: Taking PO's Result Diagrams: 03/01/17 05:37 03/01/17 05:37 Additional Lab and Data: Assess/Plan/Problems-Billing Assessment: Mr. Doan is a 62yo female with PMH significant for HTN, LBP, and Diverticulitis who is admitted with an intraperitoneal abscess for IV antibiotics and supportive care. - Patient Problems (1) Intraperitoneal abscess Code(s): K65.1 - PERITONEAL ABSCESS SNOMED Code(s): 59123232 Comment: - Appreciate Surgery and ID consults. - Monitor for signs of systemic toxicity. - Supportive care. - Tolerating a clear liquid diet, will advance diet. - Continue Zosyn and probiotic. (2) Hypertension Code(s): I10 - ESSENTIAL (PRIMARY) HYPERTENSION SNOMED Code(s): 54522667 Comment: - SBP 110-130's. - Continue to hold Lisinopril. (3) DVT prophylaxis Code(s): LRR5659 - SNOMED Code(s): 433621521 Comment: - SQ Heparin (4) Full code status Code(s): Z78.9 - OTHER SPECIFIED HEALTH STATUS SNOMED Code(s): 070038589 Status and Disposition: Inpatient for IV antibiotics. Estimated LOS at least 2-3 days.
--- NOTE | 2017-03-01 17:06 | PN ---
Progress Note - Progress Note Date of Service: 03/01/17 SOAP: Subjective: CC: divertiular abscess HPI: 62 year old woman with diveritulitis and abscess. Abd pain much improved, loose stools. No fever or rash. Objective: [] Vital Signs Temp 36.7 C 03/01/17 15:36 Pulse 73 03/01/17 15:36 Resp 16 03/01/17 15:36 BP 134/74 03/01/17 15:36 Pulse Ox 98 03/01/17 15:36 Intake & Output 02/28/17 03/01/17 03/01/17 18:59 06:59 18:59 Intake Total 2543 300 2389 Output Total 1150 1300 1200 Balance 1393 -1000 1189 Intake: IV Fluids 1398 1329 ABX - ZOSYN 205 NS (0.9%) 1193 1329 IVPB 210 ABX - ZOSYN 105 Potassium 20 mEq/100 ml 105 Oral 1145 300 850 Output: Urine 1150 1300 1200 Other: # Bowel Movements 0 Gen:awake, no distress Abd:+BS NTND soft Skin: no rash Laboratory Results - last 24 hr 03/01/17 03/01/17 05:37 05:37 WBC 8.8 RBC 4.10 Hgb 11.8 L Hct 35 MCV 86 MCH 29 MCHC 33 RDW 14 Plt Count 372 MPV 7 L Neut % (Auto) 53.8 Lymph % (Auto) 34.1 [place] % (Auto) 8.8 Eos % (Auto) 2.5 Baso % (Auto) 0.8 Absolute Neuts (auto) 4.7 Absolute Lymphs (auto) 3.0 Absolute Monos (auto) 0.8 Absolute Eos (auto) 0.2 Absolute Basos (auto) 0.1 Absolute Nucleated RBC 0 Nucleated RBC % 0 Sodium 138 Potassium 3.2 L Chloride 105 Carbon Dioxide 28 Anion Gap 5 BUN 4 L Creatinine 0.61 Est GFR ( Amer) 128.2 Est GFR (Non-Af Amer) 99.7 BUN/Creatinine Ratio 6.6 L Glucose 120 H Calcium 7.9 L Magnesium 1.8 L Assessment: 1. diverticular abscess, perforation, acute diverticulitis 2. PCN allergy, tolerating zosyn Plan: 1. continue zosyn here, orders written for ertapenem 1gm daily for 24 more days ; weekly CBC, CMP, CRP, CT Abd/pelvis near end of abx 35 minutes floor time >50% face to face discussing outpatient IV antibiotic plans.
[2017-03-02] MEDS: Acetaminophen TAB* 325 MG PO PRN ×2 (03:41→09:24)
[2017-03-02] MEDS: Heparin VIAL(*) 5000 UNITS/ML VIAL (FIVE THOUSAND) SUBCUT SCH (05:58)
[2017-03-02 06:26] LABS: Hematocrit 32 % (35-47); Hemoglobin 10.9 g/dl (12.0-16.0); Mean Corpuscular HGB Conc 34 g/dl (31-36); Mean Corpuscular Hemoglobin 29 pg (27-31); Mean Corpuscular Volume 87 fL (80-97); Mean Platelet Volume 8 um3 (7.4-10.4); Red Blood Count 3.74 10^6/ul (4.0-5.4); Red Cell Distribution Width 14 % (10.5-15)
[2017-03-02 06:39] LABS: BUN/Creatinine Ratio 5.2 (8-20); Calcium 7.7 mg/dL (8.6-10.3); EGFR African American 135.9 (>60); EGFR Non-African American 105.7 (>60); Magnesium 2.1 mg/dL (1.9-2.7); Potassium 3.5 mmol/L (3.5-5.0)
[2017-03-02] MEDS: Lactobacillus Acidophilu (GG)* 1 CAP CAP PO SCH (09:24)
--- NOTE | 2017-03-02 10:36 | PN ---
Progress Note - Progress Note Date of Service: 03/02/17 SOAP: Subjective: CC: divertiular abscess HPI: 62 year old woman with diverticulitis and abscess. Slight abd pain today, resolved, LLQ, no fever or diarrhea. Semi formed stool today. Objective: [] Vital Signs Temp 37.0 C 03/02/17 07:38 Pulse 68 03/02/17 07:38 Resp 18 03/02/17 08:00 BP 122/71 03/02/17 07:38 Pulse Ox 97 03/02/17 07:38 Intake & Output 03/01/17 03/02/17 03/02/17 18:59 06:59 18:59 Intake Total 2494 1820 360 Output Total 1200 2500 0 Balance 1294 -680 360 Intake: IV Fluids 1329 560 Magnesium 55 NS (0.9%) 1329 505 IVPB 315 ABX - ZOSYN 210 Potassium 20 mEq/100 ml 105 Oral 850 1260 360 Output: Urine 1200 2500 0 Gen:awake, no distress Abd:+BS NTND soft no rebound Skin: no rash Heart:RRR no murmur Lungs:CTA BL Laboratory Results - last 24 hr 03/02/17 03/02/17 05:50 05:50 WBC 9.0 RBC 3.74 L Hgb 10.9 L Hct 32 L MCV 87 MCH 29 MCHC 34 RDW 14 Plt Count 355 MPV 8 Neut % (Auto) 57.7 Lymph % (Auto) 32.7 [place] % (Auto) 7.3 Eos % (Auto) 1.9 Baso % (Auto) 0.4 Absolute Neuts (auto) 5.2 Absolute Lymphs (auto) 2.9 Absolute Monos (auto) 0.7 Absolute Eos (auto) 0.2 Absolute Basos (auto) 0 Absolute Nucleated RBC 0 Nucleated RBC % 0 Sodium 139 Potassium 3.5 Chloride 107 Carbon Dioxide 27 Anion Gap 5 BUN 3 L Creatinine 0.58 Est GFR ( Amer) 135.9 Est GFR (Non-Af Amer) 105.7 BUN/Creatinine Ratio 5.2 L Glucose 101 H Calcium 7.7 L Magnesium 2.1 Assessment: 1. diverticular abscess, perforation, acute diverticulitis 2. PCN allergy, tolerating zosyn Plan: 1. Abx day 4, start ertapenem 1gm daily for 24 more days; weekly CBC, CMP, CRP, CT Abd/pelvis near end of abx. One dose today to cover 24 hrs. 35 minutes floor time >50% face to face discussing outpatient IV antibiotic plans and that there is a possibility of this getting worse despite antibiotics , she agrees to return for abd pain or fever.
[2017-03-02] MEDS ORDERED: Ertapenem* 1 GM in NS 0.9% 50 ML* 50 ML IVPB SCH (11:00)
--- NOTE | 2017-03-02 11:24 | PN ---
Subjective Date of Service: 03/02/17 Interval History: Patient seen and examined at bedside. Pt states that she is feeling well and was able to tolerate a full liquid diet. Denies fever, chills, shortness of breath, chest discomfort, N/V. Pt states that she moved her bowels this AM. Family History: Unchanged from Admission Social History: Unchanged from Admission Past Medical History: Unchanged from Admission Objective Active Medications: Acetaminophen (Tylenol Tab*) 650 mg PO Q6H PRN Reason: PAIN/FEVER Heparin Sodium (Porcine) (Heparin Vial(*)) 5,000 units SUBCUT Q8HR HEMANT Sodium Chloride (Ns 0.9% 1000 Ml*) 1,000 mls @ 100 mls/hr IV PER RATE HEMANT Ertapenem 1 gm/ Sodium (Chloride) 50 mls @ 100 mls/hr IVPB Q24H HEMANT Lactobacillus Rhamnosus (Culturelle*) 1 cap PO DAILY HEMANT Morphine Sulfate (Morphine Inj (Syringe)*) 4 mg IV Q2H PRN Reason: PAIN Ondansetron HCl (Zofran Inj*) 4 mg IV Q4H PRN Reason: NAUSEA Vital Signs 03/01/17 03/01/17 03/01/17 15:36 20:00 20:03 Temperature 98.1 F 98.3 F Pulse Rate 73 79 Respiratory 16 16 16 Rate Blood Pressure 134/74 140/68 (mmHg) O2 Sat by Pulse 98 97 Oximetry 03/02/17 03/02/17 03/02/17 00:07 03:38 07:38 Temperature 100.3 F 98.1 F 98.6 F Pulse Rate 71 61 68 Respiratory 16 16 16 Rate Blood Pressure 110/56 131/66 122/71 (mmHg) O2 Sat by Pulse 98 96 97 Oximetry Oxygen Devices in Use Now: None Appearance: NAD, sitting up in bed Ears/Nose/Mouth/Throat: Mucous Membranes Moist Respiratory: Symmetrical Chest Expansion and Respiratory Effort, Clear to Auscultation Cardiovascular: NL Sounds; No Murmurs; No JVD, RRR Abdominal: NL Sounds; No Tenderness; No Distention Extremities: No Edema Skin: No Rash or Ulcers Neurological: Alert and Oriented x 3, NL Muscle Strength and Tone Lines/Tubes/Other Access: Clean, Dry and Intact Peripheral IV - site benign Nutrition: Taking PO's Result Diagrams: 03/02/17 05:50 03/02/17 05:50 Additional Lab and Data: Assess/Plan/Problems-Billing Assessment: Mr. Doan is a 62yo female with PMH significant for HTN, LBP, and Diverticulitis who is admitted with an intraperitoneal abscess for IV antibiotics and supportive care. - Patient Problems (1) Intraperitoneal abscess Code(s): K65.1 - PERITONEAL ABSCESS SNOMED Code(s): 63383645 Comment: - Secondary to diverticulitis w/ perforation. - Appreciate Surgery and ID consults. - Monitor for signs of systemic toxicity. - Supportive care. - Tolerating a full liquid diet, will advance diet as tolerated. - Change IV ABX to Ertapenem and probiotic. (2) Electrolyte abnormality Code(s): E87.8 - OTH DISORDERS OF ELECTROLYTE AND FLUID BALANCE, NEC SNOMED Code(s): 610008720 Comment: - Hypokalemia and hypomagnesemia - Resolved after replacement (3) Hypertension Code(s): I10 - ESSENTIAL (PRIMARY) HYPERTENSION SNOMED Code(s): 52062394 Comment: - SBP 110-130's. - Continue to hold Lisinopril. (4) DVT prophylaxis Code(s): WUX3364 - SNOMED Code(s): 742118305 Comment: - SQ Heparin (5) Full code status Code(s): Z78.9 - OTHER SPECIFIED HEALTH STATUS SNOMED Code(s): 102239065 Status and Disposition: Inpatient. Stable for discharge to home today.
[2017-03-02 12:44] VITALS: BP 116/63
--- NOTE | 2017-03-03 01:56 | DS ---
CC: Dr. Luz Ogden; Dr. Nicola Watts; Dr. Nicko Luna * DISCHARGE SUMMARY: DATE OF ADMISSION: 02/26/17 DATE OF DISCHARGE: 03/02/17 ATTENDING PHYSICIAN: Dr. Timothy Arellano * (dictated by Keya Cortes NP). PRIMARY CARE PROVIDER: Dr. Luz Ogden. PRIMARY DIAGNOSIS: Diverticulitis with perforation and abscess. SECONDARY DIAGNOSIS: Hypertension. CONSULTATIONS WHILE IN THE HOSPITAL: 1. Dr. Nicko Luna with Infectious Disease. 2. Dr. Nicola Watts with General Surgery. STUDIES WHILE IN THE HOSPITAL: Abdomen and pelvis CT on 02/26/17. Radiologist' s impression: Again noted is diverticulitis of the sigmoid colon. There has been interval development of a multiloculated gas and fluid collection consistent with abscess. This surrounds the uterus and left adnexa and extends into the rectouterine pouch. There is gas within this collection consistent with medication with the lumen of the bowel. DISCHARGE MEDICATIONS: [place] Medications: 1. Ertapenem 1 g IV daily for 24 days. 2. Acetaminophen 650 mg oral every 6 hours as needed for fever or pain. 3. Acidophilus one capsule oral daily. Continued Home Medications: 1. Vitamin D 1000 units oral daily. 2. Aspirin 81 mg oral daily. 3. Zofran 4 mg oral every 6 hours as needed for nausea. Discontinued Home Medications: 1. Cipro. 2. Flagyl. Medications on hold: Lisinopril 10 mg oral daily. HISTORY OF PRESENT ILLNESS/HOSPITAL COURSE: Ms. Doan is a 62-year-old female with past medical history significant for hypertension and diverticulitis , who initially presented to the hospital on 02/21 with concerns of abdominal pain and diarrhea. At that point, she had a CT of her abdomen showing a diffuse colonic diverticulosis with diverticulitis. There was a small amount of gas adjacent to the sigmoid colon concerning for microperforation. The case was reviewed with Surgery and it was felt that it was appropriate to discharge the patient home on antibiotic therapy. The patient was taking Cipro and Flagyl. Initially, she was doing well. She followed up with her primary care provider, Dr. Ogden on 02/24, at which time, it was felt that she was recovering well. The patient then developed difficulty tolerating oral intake and is only able to take water. She attributed this to the Flagyl as this had been her experience with the medication in the past. However, on the morning of 02/26, the patient developed sudden onset of "screaming pain" to her abdomen that was diffuse in nature. Based off this, the patient decided to present to the emergency room for further evaluation of her symptoms. While in the emergency room, the patient was found to be afebrile. She had very mild leukocytosis with a white blood cell count of 12.9, which was unchanged from the previous labs. The patient had resolution of her pain without any pain medication. She had a CT of her abdomen and pelvis showing that she had developed a large abscess with the CT reading "interval development of multiloculated gas or fluid collection consistent with abscess that surrounds the uterus in the left adnexa and extends into the rectouterine pouch." There is gas within the collection, consistent with communication with lumen of the bowel. Based off the patient's presentation, the hospitalists were asked to evaluate the patient for admission. While in the hospital, the patient was started initially on meropenem given the failure of Cipro and Flagyl. She was placed on clear liquids and her lisinopril was held during her acute illness. The patient was seen in consultation by Dr. Nicola Watts, who agreed with the plan for continued IV antibiotics and it was felt that as long as she was responding to IV antibiotics , she could be discharged on continued oral antibiotics, however, it was felt that if she failed to respond or had relapses, then a CT guided percutaneous drainage may be warranted or possibly even a surgical intervention. The patient continued to do well during her stay. She was then seen in consultation by Dr. Luna with Infectious Disease, who recommended switching the patient from meropenem to Zosyn. He felt that it was best if the patient will be continued on a 4-week course of IV antibiotics and have a CT scan near the end of her course of antibiotics to ensure resolution of the diverticular abscess. Ms. Doan was tolerating the Zosyn well in the setting of a penicillin allergy. The patient continued to be afebrile. Her leukocytosis resolved. She did have intermittent hypokalemia and hypomagnesia, which resolved after replacement. Her CRP improved under 37.06 two days prior to discharge. Ms. Doan was able to tolerate a full liquid diet. She was provided with instructions from nutrition on how to advance from a full liquid diet to a transitional diet. The patient stated understanding. Ms. Doan is stable for discharge to home today. Vital signs are as follows: Temperature 98.0, heart rate 76, respiratory rate 16, O2 sat 96% on room air, blood pressure 116/63. DISCHARGE PLAN: Ms. Doan will be discharged home today. ACTIVITY: As tolerated. DIET: Full liquid to transitional diet as tolerated. The patient is aware of the need to advance her diet slowly and if at any time she is developing nausea , vomiting, or abdominal pain to decrease her diet back down. As far as the patient's diverticulitis with perforation and abscess, she will be continued on 3 weeks of IV ertapenem and she will receive infusions daily at the infusion center. FOLLOWUP: The patient has a followup appointment with Dr. Watts on 03/22 at 9: 30 a.m. She also has a followup appointment with Dr. Luna on 04/21 at 3 p.m. The patient has a followup appointment with her primary care provider Dr. Ogden on 04/07 at 10:30 a.m. As far as the patient's hypertension, her blood pressures have been normotensive and well controlled off her lisinopril while in the hospital. For now, I recommend holding the lisinopril and resuming once the patient is out of this illness. The patient has been asked to return to the emergency room for significant abdominal pain, shortness of breath or chest pain. This is a summarized report of a complex medical history and hospital stay. For further details, please see the entire medical record. Time for this discharge was approximately 50 minutes, greater than half of that was spent face -to-face with the patient discussing discharge plans and instructions. CONDITION ON DISCHARGE: Stable. Reviewed by GLENIS ANDREWS 03/16/17 0924 [id number] #: [id number] [place]
--- NOTE | 2017-03-04 12:34 | ED ---
Kevin Gonzalez SooYoung, scribed for Charles Duff MD on 02/26/17 at 1704 . Abdominal Pain/Female - HPI Summary HPI Summary: A 62 y/o F presents to ED with c/o sudden-onset, intermittent LLQ abd pain onset this week, known dx: diverticulitis. Severe episode of pain at 1130 today. Pt was dispo [place] [facility] five days ago, and saw Dr. Ogden two days ago, who recommended she return to the ED if she experiences severe abd pain. She denies pain currently at bedside. Denies dysuria, hematuria, diarrhea, melena. Last episode of diverticulitis was approx 1 year ago. Other PMHx: chronic low back pain, HTN, tonsillectomy. Non-smoker. ETOH with dinner. - History of Current Complaint Chief Complaint: EDAbdPain Stated Complaint: ABD PAIN Hx Obtained From: Patient Onset/Duration: Sudden Onset - this AM, Resolved Timing: Intermittent Episode Lasting - 20 seconds Severity Initially: Severe - episode at 11:30 Severity Currently: None Pain Intensity: 1 Pain Scale Used: 0-10 Numeric Location: Discrete At: LLQ Associated Signs and Symptoms: Positive: Negative Allergies/Adverse Reactions: Allergies Allergy/AdvReac Type Severity Reaction Status Date / Time Erythromycin AdvReac Mild GI Upset Verified 03/04/17 10:03 Metronidazole [From Flagyl] AdvReac Mild GI Upset Verified 03/04/17 10:03 Penicillins [PCN] AdvReac Mild GI Upset Verified 03/04/17 10:03 PMH/Surg Hx/FS Hx/Imm Hx Previously Healthy: No Endocrine/Hematology History: Denies: Hx Diabetes Cardiovascular History: Reports: Hx Hypertension Respiratory History: Denies: Hx Asthma History: Denies: Hx Renal Disease Musculoskeletal History: Reports: Hx Back Problems - chronic low back pain , Hx Osteoporosis - Surgical History Surgery Procedure, Year, and Place: t&a - Immunization History Date of Influenza Vaccine: 12/2016 Infectious Disease History: No Infectious Disease History: Denies: Traveled Outside the [place] in Last 30 Days - Family History Known Family History: Positive: Hypertension, Other - HLD - Social History Occupation: Employed Full-time Lives: With Family Alcohol Use: Daily Hx Substance Use: No Substance Use Type: Reports: None Hx Tobacco Use: No Smoking Status (MU): Never Smoked Tobacco Review of Systems Negative: Fever, Chills Negative: Erythema Negative: Sore Throat Negative: Chest Pain Negative: Shortness Of Breath, Cough Positive: Abdominal Pain. Negative: Vomiting, Diarrhea, Nausea Negative: dysuria, hematuria Negative: Myalgia, Edema Negative: Rash Neurological: Other - neg: dizziness All Other Systems Reviewed And Are Negative: Yes Physical Exam - Summary Physical Exam Summary: Constitutional: Well-developed, Well-nourished, Alert. (-) Distressed Skin: Warm, Dry HENT: Normocephalic; Atraumatic Eyes: Conjunctiva normal Neck: Musculoskeletal ROM normal neck. (-) JVD, (-) Stridor, (-) Tracheal deviation Cardio: Rhythm regular, rate normal, Heart sounds normal; Intact distal pulses; The pedal pulses are 2+ and symmetric. Radial pulses are 2+ and symmetric. (-) Murmur Pulmonary/Chest wall: Effort normal. (-) Respiratory distress, (-) Wheezes, (-) Rales Abd: Soft, Exquisite LLQ Tenderness, (-) Distension, (-) Guarding, (-) Rebound Musculoskeletal: (-) Edema Lymph: (-) Cervical adenopathy Neuro: Alert, Oriented x3 Psych: Mood and affect Normal Triage Information Reviewed: Yes Vital Signs On Initial Exam: Initial Vitals Temp Pulse Resp BP Pulse Ox 98.2 F 83 18 133/74 97 02/26/17 13:05 02/26/17 13:05 02/26/17 13:05 02/26/17 13:05 02/26/17 13:05 Vital Signs Reviewed: Yes Diagnostics - Vital Signs Vital Signs Temp Pulse Resp BP Pulse Ox 02/26/17 16:34 99.1 F 86 18 120/68 98 02/26/17 15:22 99.8 F 95 20 123/72 99 02/26/17 13:05 98.2 F 83 18 133/74 97 - Laboratory Lab Results: Lab Results 02/26/17 02/26/17 02/26/17 Range/Units 18:05 18:05 18:05 WBC 12.9 H (3.5-10.8) 10^3/ul RBC 4.48 (4.0-5.4) 10^6/ul Hgb 12.7 (12.0-16.0) g/dl Hct 39 (35-47) % MCV 86 (80-97) fL MCH 28 (27-31) pg MCHC 33 (31-36) g/dl RDW 14 (10.5-15) % Plt Count 373 (150-450) 10^3/ul MPV 7 L (7.4-10.4) um3 Neut % (Auto) 71.8 (38-83) % Lymph % (Auto) 16.9 L (25-47) % Vilas % (Auto) 10.4 H (1-9) % Eos % (Auto) 0.5 (0-6) % Baso % (Auto) 0.4 (0-2) % Absolute Neuts (auto) 9.3 H (1.5-7.7) 10^3/ul Absolute Lymphs (auto) 2.2 (1.0-4.8) 10^3/ul Absolute Monos (auto) 1.3 H (0-0.8) 10^3/ul Absolute Eos (auto) 0.1 (0-0.6) 10^3/ul Absolute Basos (auto) 0.1 (0-0.2) 10^3/ul Absolute Nucleated RBC 0 10^3/ul Nucleated RBC % 0 Sodium 133 (133-145) mmol/L Potassium 3.4 L (3.5-5.0) mmol/L Chloride 94 L (101-111) mmol/L Carbon Dioxide 28 (22-32) mmol/L Anion Gap 11 (2-11) mmol/L BUN 12 (6-24) mg/dL Creatinine 0.71 (0.51-0.95) mg/dL Est GFR ( Amer) 107.6 (>60) Est GFR (Non-Af Amer) 83.7 (>60) BUN/Creatinine Ratio 16.9 (8-20) Glucose 87 (70-100) mg/dL Lactic Acid 0.8 (0.5-2.0) mmol/L Calcium 9.1 (8.6-10.3) mg/dL Total Bilirubin 0.40 (0.2-1.0) mg/dL AST 18 (13-39) U/L ALT 12 (7-52) U/L Alkaline Phosphatase 66 (34-104) U/L C-Reactive Protein 79.62 H (< 5.00) mg/L Total Protein 7.3 (6.4-8.9) g/dL Albumin 3.8 (3.2-5.2) g/dL Globulin 3.5 (2-4) g/dL Albumin/Globulin Ratio 1.1 (1-3) Lipase 20 (11.0-82.0) U/L Urine Color Urine Appearance Urine pH (5-9) Ur Specific Bryson (1.010-1.030) Urine Protein (Negative) Urine Ketones (Negative) Urine Blood (Negative) Urine Nitrate (Negative) Urine Bilirubin (Negative) Urine Urobilinogen (Negative) Ur Leukocyte Esterase (Negative) Urine WBC (Auto) (Absent) Urine RBC (Auto) (Absent) Ur Squamous Epith Cells (Absent) Urine Bacteria (Absent) Urine Glucose (Negative) 02/26/17 Range/Units 19:21 WBC (3.5-10.8) 10^3/ul RBC (4.0-5.4) 10^6/ul Hgb (12.0-16.0) g/dl Hct (35-47) % MCV (80-97) fL MCH (27-31) pg MCHC (31-36) g/dl RDW (10.5-15) % Plt Count (150-450) 10^3/ul MPV (7.4-10.4) um3 Neut % (Auto) (38-83) % Lymph % (Auto) (25-47) % Vilas % (Auto) (1-9) % Eos % (Auto) (0-6) % Baso % (Auto) (0-2) % Absolute Neuts (auto) (1.5-7.7) 10^3/ul Absolute Lymphs (auto) (1.0-4.8) 10^3/ul Absolute Monos (auto) (0-0.8) 10^3/ul Absolute Eos (auto) (0-0.6) 10^3/ul Absolute Basos (auto) (0-0.2) 10^3/ul Absolute Nucleated RBC 10^3/ul Nucleated RBC % Sodium (133-145) mmol/L Potassium (3.5-5.0) mmol/L Chloride (101-111) mmol/L Carbon Dioxide (22-32) mmol/L Anion Gap (2-11) mmol/L BUN (6-24) mg/dL Creatinine (0.51-0.95) mg/dL Est GFR ( Amer) (>60) Est GFR (Non-Af Amer) (>60) BUN/Creatinine Ratio (8-20) Glucose (70-100) mg/dL Lactic Acid (0.5-2.0) mmol/L Calcium (8.6-10.3) mg/dL Total Bilirubin (0.2-1.0) mg/dL AST (13-39) U/L ALT (7-52) U/L Alkaline Phosphatase (34-104) U/L C-Reactive Protein (< 5.00) mg/L Total Protein (6.4-8.9) g/dL Albumin (3.2-5.2) g/dL Globulin (2-4) g/dL Albumin/Globulin Ratio (1-3) Lipase (11.0-82.0) U/L Urine Color Straw Urine Appearance Clear Urine pH 6.0 (5-9) Ur Specific Bryson 1.050 H (1.010-1.030) Urine Protein Negative (Negative) Urine Ketones 1+ H (Negative) Urine Blood Negative (Negative) Urine Nitrate Negative (Negative) Urine Bilirubin Negative (Negative) Urine Urobilinogen Negative (Negative) Ur Leukocyte Esterase Trace H (Negative) Urine WBC (Auto) Trace(0-5/hpf) (Absent) Urine RBC (Auto) Trace(0-2/hpf) (Absent) Ur Squamous Epith Cells Present H (Absent) Urine Bacteria Absent (Absent) Urine Glucose Negative (Negative) Result Diagrams: 03/02/17 05:50 03/02/17 05:50 Lab Statement: Any lab studies that have been ordered have been reviewed, and results considered in the medical decision making process. Abdominal Pain Fem Course/Dx - Course Course Of Treatment: A 62 y/o F presents to ED with c/o sudden-onset, intermittent LLQ abd pain onset this week, known dx: diverticulitis. Severe episode of pain at 1130 today. Pt was dispo from [facility] five days ago, and saw Dr. Ogden two days ago, who recommended she return to the ED if she experiences severe abd pain. She denies pain currently at bedside. Denies dysuria, hematuria , diarrhea, melena. Last episode of diverticulitis was approx 1 year ago. Other PMHx: chronic low back pain, HTN, tonsillectomy. Non-smoker. ETOH with dinner. Bloodwork obtained. SO to Dr. Saeed at shift change pending CT results. - Diagnoses Provider Diagnoses: Diverticular abscess Discharge - Discharge Plan Condition: Stable Disposition: OTHER Discharge Disposition Comment: SO to Dr. Saeed at shift change pending CT results The documentation as recorded by the Kevin drake SooYoung accurately reflects the service I personally performed and the decisions made by me, Charles Duff MD.
== END 2017-03-02 13:10 | disposition home or self-care (01) | DRG 391 ==
LOC: ED 12:51 → SSU 19:32
PROVIDERS: ADMIT Hospitalist; ATTEND Internal Medicine
DX: K57.20 Diverticulitis of large intestine with perforation and abscess without bleeding (principal); K65.1 Peritoneal abscess; G89.29 Other chronic pain; I10 Essential (primary) hypertension; M54.9 Dorsalgia, unspecified; K57.30 Diverticulosis of large intestine without perforation or abscess without bleeding; E87.6 Hypokalemia; E83.42 Hypomagnesemia; Z88.1 Allergy status to other antibiotic agents; Z88.0 Allergy status to penicillin; Z88.8 Allergy status to other drugs, medicaments and biological substances; Z81.1 Family history of alcohol abuse and dependence; Z80.42 Family history of malignant neoplasm of prostate; Z80.49 Family history of malignant neoplasm of other genital organs; Z79.82 Long term (current) use of aspirin
CPT/HCPCS: 36415; 74177; 80048; 80053; 81003; 81015; 83605; 83690; 83735; 85025; 86140; 87086; A9270-GY; J0744; J1335; J1644; J2185; J2543; J3475; J3480; Q9967

== ENCOUNTER 2017-05-05 07:45 | Inpatient (IN) | payer OTHER ==
--- NOTE | 2017-04-21 19:13 | HP ---
CC: Luz Ogden MD; Nicko Luna MD * ADMISSION HISTORY AND PHYSICAL: DATE OF ADMISSION: 05/05/17 PATIENT OF: Nicola Watts MD DATE OF CONSULTATION: 04/21/17 ATTENDING SURGEON: Nicola Watts MD * (DICTATED BY BEBETO OGDEN) PRIMARY CARE PHYSICIAN: Luz Ogden MD CHIEF COMPLAINT: Recurrent sigmoid diverticulitis with perforation. HISTORY OF PRESENT ILLNESS: Ms. Doan is a pleasant 62-year-old female who is known to our practice from prior hospitalization back in early February. The patient has past medical history of recurrent sigmoid diverticulitis most recently about 2 months ago when she was admitted to the hospital. Back in early February, she experienced abdominal pain and was seen by her primary care physician. CT scan was obtained revealing evidence of sigmoid diverticulitis for which she initially was treated as an outpatient with Cipro and Flagyl. The patient apparently had worsening abdominal pain for which she was evaluated in the emergency room on 02/26/17 revealing a large abscess collection adjacent to her sigmoid colon for which she was admitted for IV antibiotics. The patient was hospitalized for about 5 days and we were consulted given her history of recurrent sigmoid diverticulitis. She responded very well to IV antibiotics and eventually was discharged home with PICC line to continue IV antibiotics at home and was seen in consultation with Dr. Luna from Infectious Disease. The patient had done very well since her discharge about 2 months ago. She had finished her IV antibiotic course and now started on oral quinolone course. She was seen about a week ago by Dr. Watts in consideration to do an elective sigmoid colectomy given her ongoing symptoms with recurrent diverticulitis. She reports that she has done extremely well since her discharge. 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 She has good appetite and has gained her weight back. She denies any significant changes in bowel habits, fever, chills, or any urinary symptoms. The patient had a long discussion with Dr. Watts last week and she was found to be a good candidate for an elective laparoscopic-assisted sigmoid colectomy to be performed on a later date. PAST MEDICAL HISTORY: Significant for recurrent sigmoid diverticulitis, most recently on 02/26/17 with perforation and abscess. She also has history of essential hypertension and chronic back pain since last year. PAST SURGICAL HISTORY: Significant for tonsillectomy at age 8 as well as LASIK eye correction surgery years ago. She also had a benign skin excision from her back at a dermatology clinic. CURRENT MEDICATIONS: Her medications at home include: 1. Moxifloxacin 400 mg one tablet a day. 2. Multivitamin 1 p.o. daily. 3. Calcium 500/vitamin D 125 one tablet daily. 4. Aspirin 81 mg daily. 5. EpiPen 2-Mak use as needed for allergies. 6. Invanz 1 g every 24 hours at the infusion center; however, last dose was taken on 04/12/17. 7. She also takes Probiotic 1 tablet daily. ALLERGIES: Include SPIDER BITES, ERYTHROMYCIN, and PENICILLIN. FAMILY HISTORY: She denies any family history of colorectal malignancies. 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 She is a nonsmoker, who denies alcohol intake and caffeine intake is minimal. REVIEW OF SYSTEMS: See HPI, otherwise negative. She denies any headache, dizziness, blurred vision, or double vision. No sore throat, cough, or shortness of breath. No chest pain, palpitation, or leg edema. She denies any back pain, flank pain, dysuria, hematuria, or urinary frequency. She no longer experienced any abdominal pain, nausea, vomiting, or recent changes in the bowel habits. No fever, chills, weight loss, or night sweats. PHYSICAL EXAMINATION GENERAL: She is a pleasant, healthy-appearing middle-aged female, in no acute distress or discomfort at the time of admission. VITAL SIGNS: Revealed blood pressure of 122/72, respiration of 16, pulse of 76 , temperature of 98.8. She weighs 152 pounds on a 5 feet 6 inch frame with BMI of 25. HEENT: Head is normocephalic, atraumatic. PERRLA. EOMs intact. Oropharynx is pink, moist with no exudate. NECK: Supple. Trachea midline. No cervical adenopathy, thyromegaly, or JVD. LUNGS: Clear to auscultation bilaterally. HEART: Regular rate and rhythm. Normal S1 and S2 without rubs, murmurs, or gallops. BACK: With normal curvature. No CVA tenderness. BREAST: Exam deferred at this time. ABDOMEN: Soft, nontender, and nondistended. There is no hernias, masses, or hepatosplenomegaly. No guarding, rigidity, or rebound tenderness. Gonzalez's sign was negative. EXTREMITIES: Without cyanosis, clubbing, or edema. NEUROLOGIC: Grossly intact. RECTAL: Exam deferred at this time. IMPRESSION: A 62-year-old female with a recurrent sigmoid diverticulitis with recent perforation and abscess formation back in early February, who was seen in the office today to consider an elective sigmoid colectomy. PLAN: The patient is well informed and she is scheduled for a laparoscopic sigmoid colon resection possible open by Dr. Watts on 05/05/17. We went on and discussed with her the rationale, indications, risks, and benefits of the surgery. Risks include, but not limited to, infection, bleeding, or injury to adjacent structure. We also discussed with her the possibility of an open technique if there are some difficulties arise doing a laparoscopically. We also discussed the possibility of colostomy with possibility of colostomy reversal on a later date if deemed necessary. She seems to understand and wishes to proceed as outlined. PET was scheduled later today and we will obtain baseline blood work and an EKG for further evaluation. We also withdrew her bowel prep including antibiotic cleansing and will be taking care of that the day before surgery. We will follow her up accordingly in a postoperative period. BEBETO OGDEN [id number]/[facility] #: [id number] [place]
[~2017-05-05 07:45] MED LIST changes: -Ciprofloxacin 400MG IVPREMIX(* 400 MG/200 ML BAG IVPB ONE; -Ciprofloxacin TAB* 500 MG PO ONE; +Gentamicin ADULT (*) 350 MG in NS 0.9% 250 ML* 250 ML IVPB SCH; -Iohexol 300* (CONTRAST) 10 ML SDV IV ONE; -Ketorolac INJ* 30 MG/ML 1 ML VIAL IV ONE; -Ketorolac INJ* 30 MG/ML 1 ML VIAL IV PUSH ONE; -Ketorolac INJ* 30 MG/ML 1 ML VIAL ONE; -NS 0.9% 1000 ML* 2,000 ML IV ONE; -Ondansetron INJ* 2 MG/ML VIAL IV ONE; -metroNIDAZOLE IV 500 MG/100ML* 500 MG/100 ML BAG IVPB ONE
[2017-05-05] MEDS ORDERED: Bupivacaine 0.25% SDV* 30 ML ONE ×2 (11:10→14:52)
[2017-05-05] MEDS ORDERED: Bupivacaine 0.5% SDV PF* 30 ML VIAL ONE (11:10)
[2017-05-05] MEDS ORDERED: Clindamycin 900 MG IVPREMIX(* 900 MG/50 ML SDV IV ONE (11:16)
[2017-05-05] MEDS ORDERED: Buffered Lidocaine 0.9% SYRIN* 5 ML/SYR SYRINGE ONE (11:16)
[2017-05-05] MEDS ORDERED: Famotidine IV* 10 MG/ML 2 ML (20 mg) ONE (11:43)
[2017-05-05] MEDS ORDERED: Midazolam* 1 MG/ML 2 ML VIAL (2 MG) ONE ×2 (11:51→12:22)
[2017-05-05] MEDS ORDERED: fentaNYL* 50 MCG/ML 2 ML VIAL (100 MCG VIAL) ONE ×2 (11:51→13:50)
[2017-05-05] MEDS ORDERED: Propofol* 10 MG/ML 20 ML BTL IV PUSH ONE (12:15)
[2017-05-05] MEDS ORDERED: Lidocaine 2% PF * 5 ML VIAL ONE (12:15)
[2017-05-05] MEDS ORDERED: Dexamethasone IV* 4 MG/ML 1 ML (4 MG) ONE (12:15)
[2017-05-05] MEDS ORDERED: Cisatracurium* 2 MG/ML MDV 5 ML ONE (12:15)
[2017-05-05] MEDS ORDERED: Desflurane* 240 ML INH ONE (12:51)
[2017-05-05] MEDS ORDERED: PROCHLORPERAZINE INJ 5 MG/ML 2 ML VIAL IV PRN (13:00)
[2017-05-05] MEDS ORDERED: fentaNYL* 50 MCG/ML 2 ML VIAL (100 MCG VIAL) IV PRN (13:00)
[2017-05-05] MEDS ORDERED: Ondansetron INJ* 2 MG/ML VIAL IV PRN ×2 (13:00→15:10)
[2017-05-05] MEDS ORDERED: HYDROmorphone INJ* 1 MG/ML CARPUJECT SYRINGE IV PRN (13:00)
[2017-05-05] MEDS ORDERED: Acetaminophen TAB* 325 MG PO PRN (13:00)
[2017-05-05] MEDS ORDERED: DiMENhydriNATE IV* 50 MG/ML VIAL IV PUSH PRN (13:00)
[2017-05-05] MEDS ORDERED: Ondansetron INJ* 2 MG/ML VIAL ONE (14:57)
[2017-05-05] MEDS ORDERED: Ketorolac INJ* 30 MG/ML 1 ML VIAL ONE (14:57)
[2017-05-05] MEDS ORDERED: oxyCODONE/Acetamin 5/325 MG* TAB PO PRN (15:10)
[2017-05-05] MEDS ORDERED: HYDROmorphone INJ* 2 MG/ML CARPUJECT SYRINGE IV PRN (15:10)
[2017-05-05] MEDS: Heparin VIAL(*) 5000 UNITS/ML VIAL (FIVE THOUSAND) SUBCUT SCH (21:59)
--- NOTE | 2017-05-06 02:34 | OP ---
CC: Dr. Luz Ogden; Dr. Nicko Luna * DATE OF OPERATION: 05/05/17 - ROOM #333 DATE OF : 57 SURGEON: Nicola Watts MD ASSISTANTS: Dr. Long and Luma Jorgensen NP ANESTHESIOLOGIST: Dr. Rendon. ANESTHESIA: General anesthetic, local infiltration PRE-OP DIAGNOSIS: Sigmoid diverticulitis. POST-OP DIAGNOSIS: Sigmoid diverticulitis. OPERATIVE PROCEDURE: Laparoscopic sigmoid resection with primary anastomosis. DESCRIPTION OF PROCEDURE: The patient was supine on the operating room table. After adequate general anesthetic, compression stockings, Yolanda Hugger warmer, intravenous antibiotics and Chapman catheterization, the abdomen was prepped with antiseptic, draped in a sterile fashion. The patient was in the split leg position and the rectal stump was irrigated out with dilute Betadine solution. It was all coming out clear. The abdomen was then prepped with antiseptic, draped in a sterile fashion. Local infiltrative anesthesia was administered. A small umbilical incision was created. A blunt port cannula was placed. Insufflation was carried out with carbon dioxide. Additional cannulae, 5 mm left lower quadrant and right lower quadrant, 12 mm suprapubic were placed through small stab wounds under direct vision. The left gutter was mobilized up to the splenic flexure. There were adhesions along the left tube and ovary and down into the left pelvis and these were gradually taken down mostly sharply , some with blunt dissection and it was moderately sticky heading further back, so it was felt that resection be carried out just under the bowel through the mesentry to stay well away from the ureter, so the mesentry was divided using the LigaSure device just a centimeter or two from the bowel wall, this was taken down into the pelvis where a soft area of the rectosigmoid was identified , this was cleaned off circumferentially with the LigaSure used to divide the mesentry and this was divided with an EndoGIA stapler with a 60-mm purple load, this created an excellent staple line. The umbilical incision was enlarged and the bowel was brought out through that site and site for resection was chosen and divided and specimen was sent to Pathology in formalin labeled sigmoid resection with suture distal. The proximal bowel was in excellent condition, had good blood flow and it was cannulated with a 28-mm EEA anvil, which was brought out through the sidewall in a Pérez fashion. The colotomy was then closed with a firing of the EndoGIA stapler with a purple cartridge, this created excellent closure. The bowel was dropped back into the abdominal cavity after silk suture had been placed around the hole where the trocar came through and then the umbilical fascia was closed with 0-Vicryl. Attention was then turned to the pelvis where suction irrigation was carried and hemostasis was excellent. The sizer was used to probe the rectum and the last 3 cm were a little bit fibrotic and it was hard to bring the anvil all the way up to the staple line, so the anvil was brought out through the anterior wall about 3 cm short of the staple line and anastomosis created using the EEA stapler. This is an excellent anastomosis with excellent donut. It was tested under water with air insufflation and there was no evidence of leakage. Everything appeared to be in excellent condition. The cannulae were removed. 0-Vicryl was used to close the muscle in the suprapubic incision and then 5-0 Vicryl was used for all incisions followed by Steri-Strips. A gauze dressing was placed at the umbilicus. She was awakened and brought to recovery in good condition. There were no complications. No drains. Pathologic specimen was sigmoid. Sponge and instrument counts correct. Estimated blood loss was 30 mL. [id number]/[facility] #: [id number] [place]
[2017-05-06] MEDS: Heparin VIAL(*) 5000 UNITS/ML VIAL (FIVE THOUSAND) SUBCUT SCH ×3 (06:06→22:43)
[2017-05-06] MEDS: Acetaminophen TAB* 325 MG PO PRN ×2 (06:26→16:16)
--- NOTE | 2017-05-06 08:46 | PN ---
Progress Note - Progress Note Date of Service: 05/06/17 Note: POD#1 s/p colectomy Afeb, VS noted UO large, rodrigo po's passed some flatus, trace blood NO N/V, a little hungry Minimal pain Breathing easy Abd soft, min tender, active BS, drsgs clean. Doing well s/p colectomy increase po's, decrease IVF.
[2017-05-06] MEDS: Ketorolac INJ* 30 MG/ML 1 ML VIAL IV PRN ×2 (16:16→22:54)
[2017-05-07] MEDS: Heparin VIAL(*) 5000 UNITS/ML VIAL (FIVE THOUSAND) SUBCUT SCH ×3 (06:37→21:32)
--- NOTE | 2017-05-07 10:35 | PN ---
Progress Note - Progress Note Date of Service: 05/07/17 Note: Surgery Ms. Doan denies problems. She is tolerating full liquid diet without nausea or vomiting. She is passing flatus and liquid stool. Vital Signs 05/06/17 05/06/17 05/06/17 11:21 16:28 19:38 Temperature 98.0 F 98.7 F 98.1 F Pulse Rate 62 67 72 Respiratory 18 16 16 Rate Blood Pressure 119/57 126/67 128/67 (mmHg) O2 Sat by Pulse 95 97 93 Oximetry 05/06/17 05/06/17 05/07/17 22:10 23:56 04:02 Temperature 98.4 F 98.0 F Pulse Rate 65 58 Respiratory 16 16 16 Rate Blood Pressure 117/58 127/74 (mmHg) O2 Sat by Pulse 95 93 Oximetry 05/07/17 05/07/17 07:36 08:48 Temperature 98.4 F Pulse Rate 54 62 Respiratory 18 18 Rate Blood Pressure 136/68 136/70 (mmHg) O2 Sat by Pulse 96 Oximetry Abd: good BS, soft, non-tender Incisions: clean and dry; no signs infection. Intake & Output 05/06/17 05/07/17 05/07/17 22:59 06:59 14:59 Intake Total 200 Output Total 400 Balance -200 Intake: Oral 200 Output: Urine 400 Other: Estimated Void Medium POD# 2 s/p lap assisted sigmoid colectomy. Doing well. Will advance diet and encourage activity. Possible d/c tomorrow.
[2017-05-08] MEDS: Heparin VIAL(*) 5000 UNITS/ML VIAL (FIVE THOUSAND) SUBCUT SCH (06:02)
--- NOTE | 2017-05-08 08:48 | PN ---
Progress Note - Progress Note Date of Service: 05/08/17 Note: Surgery Ms. Doan reports that she feels better today than yesterday. Still no solid stool. Tolerating diet. Vital Signs 05/07/17 05/07/17 05/07/17 11:30 13:29 15:25 Temperature 97.9 F 98.7 F Pulse Rate 63 64 Respiratory 16 16 Rate Blood Pressure 136/66 133/70 (mmHg) O2 Sat by Pulse 98 98 96 Oximetry 05/07/17 05/07/17 05/07/17 19:14 20:00 20:30 Temperature 98.0 F Pulse Rate 70 Respiratory 18 16 16 Rate Blood Pressure 147/70 (mmHg) O2 Sat by Pulse 96 Oximetry 05/07/17 05/08/17 23:20 03:23 Temperature 98.1 F 98.6 F Pulse Rate 66 67 Respiratory 16 16 Rate Blood Pressure 133/73 118/65 (mmHg) O2 Sat by Pulse 96 94 Oximetry Abd: good BS, soft, non-tender except to deep palpation. Incisions: clean and dry; no signs of infection. Intake & Output 05/07/17 05/08/17 05/08/17 22:59 06:59 14:59 Intake Total 500 500 Output Total 600 1250 Balance -100 -750 Intake: Oral 500 500 Output: Urine 600 1250 A/P: POD#3 Doing well, can go home.
[2017-05-08 08:59] VITALS: BP 150/87
--- NOTE | 2017-05-11 05:11 | DS ---
CC: Dr. Nicola Watts; Dr. Luz Ogden; Dr. Nicko Luna * DISCHARGE SUMMARY: DATE OF ADMISSION: 05/05/17 DATE OF DISCHARGE: 05/08/17 PRINCIPAL ADMITTING DIAGNOSIS: Diverticulitis. OPERATIVE PROCEDURE ON THIS ADMISSION: Laparoscopic sigmoid resection. COMPLICATIONS: None. HOSPITAL COURSE: The patient is a 62-year-old female who had been treated as an outpatient for chronic recurrent diverticulitis with abscesses. After defervescence, she was brought to the operating room for an elective sigmoid resection. She underwent a laparoscopic sigmoid resection on 05/05/17. She had an uneventful postoperative recovery with gradual improvement in pain control, appetite, ambulation and valve function. At the time of discharge, she was tolerating oral intake, ambulating well, urinating well. She was passing flatus. Her pain control was excellent. Pathology was reviewed with the patient, which was diverticular disease. Incisions were healing nicely. She is discharged home on 05/08/17, will follow up in the office shortly. [id number]/[facility] #: [id number] [place]
== END 2017-05-08 10:50 | disposition home or self-care (01) | DRG 330 ==
LOC: AA 10:46 → SSU 16:47
PROVIDERS: ADMIT Surgery; ATTEND Surgery
PROC: 0DTE4ZZ Resection of Large Intestine, Percutaneous Endoscopic Approach (ICD-10-PCS; principal; 2017-05-05 12:30)
DX: K57.21 Diverticulitis of large intestine with perforation and abscess with bleeding (principal); G89.29 Other chronic pain; M54.9 Dorsalgia, unspecified; I10 Essential (primary) hypertension; M81.0 Age-related osteoporosis without current pathological fracture; Z88.0 Allergy status to penicillin; Z72.89 Other problems related to lifestyle; Z88.1 Allergy status to other antibiotic agents
CPT/HCPCS: 88307; A9270-GY; C1776; J1100; J1580; J1644; J1885; J2250; J2405; J2704; J3010

== ENCOUNTER 2018-03-23 19:28 | Emergency (ER) | payer OTHER ==
[2018-03-23 19:44] VITALS: BP 147/85
[2018-03-23] MEDS ORDERED: Albuterol HFA INHALER* 8 gm MDI INH ONE (20:22)
--- NOTE | 2018-03-23 20:23 | UC ---
Respiratory Complaint HPI - HPI Summary HPI Summary: The patient is a 63-year-old female that presents here with a cough 3 weeks. She states she gets these symptoms yearly. 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 She was told that she had abnormal ulnar function tests during those years. She thinks she was told that her lungs were "restricted". She has never used in an inhaler or had a nebulized treatment. She did have pneumonia 6 years ago. - History of Current Complaint Chief Complaint: UCRespiratory Stated Complaint: COUGH Time Seen by Provider: 03/23/18 20:06 Hx Obtained From: Patient Hx Last Menstrual Period: post Onset/Duration: Gradual Onset, Lasting Weeks Timing: Constant Severity Initially: Mild Severity Currently: Moderate Pain Intensity: 0 Pain Scale Used: 0-10 Numeric Character: Cough: Nonproductive Aggravating Factors: Allergens - ?, Exertion, Other - talking Alleviating Factors: Nothing Associated Signs And Symptoms: Positive: Negative - Allergies/Home Medications Allergies/Adverse Reactions: Allergies Allergy/AdvReac Type Severity Reaction Status Date / Time erythromycin base Allergy Severe GI Upset Verified 03/23/18 19:45 metronidazole [From Flagyl] Allergy Severe GI Upset Verified 03/23/18 19:45 PMH/Surg Hx/FS Hx/Imm Hx Previously Healthy: Yes Respiratory History: Pneumonia - Surgical History Surgical History: Yes Surgery Procedure, Year, and Place: Tonsillectomy - age 8. colon partial removal - Family History Known Family History: Positive: Hypertension, Other - HLD - Social History Alcohol Use: None Alcohol Amount: pt not drinking alcohol at this time since hospitalized Substance Use Type: None Smoking Status (MU): Never Smoked Tobacco Have You Smoked in the Last Year: No - Immunization History Most Recent Influenza Vaccination: December 2016 Most Recent Pneumonia Vaccination: 2016? (Patient unsure if vaccine was for pneumonia or shingles) Review of Systems Constitutional: Negative Skin: Negative Eyes: Negative ENT: Negative Respiratory: Cough Cardiovascular: Negative Gastrointestinal: Negative Genitourinary: Negative Motor: Negative Neurovascular: Negative Musculoskeletal: Negative Neurological: Negative Psychological: Negative All Other Systems Reviewed And Are Negative: Yes Physical Exam Triage Information Reviewed: Yes Appearance: Well-Appearing, No Pain Distress, Well-Nourished Vital Signs: Initial Vital Signs Temp 98.4 F 03/23/18 19:40 Pulse 74 03/23/18 19:40 Resp 16 03/23/18 19:40 BP 147/85 03/23/18 19:40 Pulse Ox 98 03/23/18 19:40 Eyes: Positive: Conjunctiva Clear ENT: Positive: Hearing grossly normal, Nasal congestion. Negative: Nasal drainage, Tonsillar swelling, Tonsillar exudate, Dental tenderness, Sinus tenderness, Uvula midline Neck: Positive: Supple, Nontender, No Lymphadenopathy Respiratory: Positive: No respiratory distress, No accessory muscle use, Wheezing - with forced expiration Cardiovascular: Positive: RRR, No Murmur Musculoskeletal: Positive: ROM Intact, No Edema Neurological: Positive: Alert Psychological Exam: Normal Skin Exam: Normal UC Diagnostic Evaluation - Laboratory O2 Sat by Pulse Oximetry: 98 - normal/not hypoxic Respiratory Course/Dx - Differential Dx/Diagnosis Provider Diagnoses: acute cough. bronchospasm Discharge - Sign-Out/Discharge Documenting (check all that apply): Patient Departure All imaging exams completed and their final reports reviewed: No Studies - Discharge Plan Condition: Stable Disposition: HOME Prescriptions: predniSONE [Deltasone 20 MG TAB] 40 mg PO DAILY #10 tab Patient Education Materials: Bronchospasm (ED) Referrals: Luz Ogden MD [Primary Care Provider] - 2 Weeks (recheck in 1-2 weeks) Additional Instructions: I think you should have formal pulmonary function tests be sure to follow up with your MD recheck sooner for new or worsening symptoms - Billing Disposition and Condition Condition: STABLE Disposition: Home
== END 2018-03-23 20:40 | disposition home or self-care (01) ==
LOC: UCEAST 19:28
DX: R05 Cough (principal); J98.01 Acute bronchospasm; Z88.1 Allergy status to other antibiotic agents
CPT/HCPCS: 99212; A9270-GY; G0463